=== PATIENT | male | born 1950 | race Caucasian/White ===

== ENCOUNTER 2019-12-05 23:20 | Inpatient (IN) | payer MEDICARE, OTHER ==
[~2019-12-05] VITALS: Ht 177.8 cm; Wt 108.4 kg
--- OUTSIDE RECORDS SUMMARY | 2019-12-05 23:25 | XMS REPORT ---
Author [facility] Address Unknown Phone Unavailable Care Team Providers Care Traffic Engineering Director Name Role Phone Unavailable Unavailable Payers Payer Name Policy Type Policy Number Effective Date Expiration Date Problems This patient has no known problems. Allergies, Adverse Reactions, Alerts Allergy Name Allergy Type Status Severity Reaction(s) Onset Date Inactive Date Treating Clinician Comments codeine DA Active U 2019-11-30 00:00:00 ibuprofen DA Active U 2019-11-30 00:00:00 gabapentin DA Active U 2019-11-30 00:00:00 codeine DA Active U 2017-10-06 00:00:00 ibuprofen DA Active U 2017-10-06 00:00:00 gabapentin DA Active U 2017-10-06 00:00:00 Medications This patient has no known medications. Encounters Start Date/Time End Date/Time Encounter Type Admission Type Attending [facility] Care Department Encounter ID 2019-12-27 00:00:00 2019-12-27 00:00:00 Outpatient [facility] [id number] 2019-12-19 00:00:00 2019-12-19 00:00:00 Outpatient [facility] [id number] 2019-10-24 08:41:11 2019-10-24 08:41:11 Outpatient [facility] [id number] 2019-10-03 00:00:00 2019-10-03 00:00:00 Outpatient [facility] [id number] 2019-09-13 10:16:36 2019-09-13 10:16:36 Outpatient [facility] [id number] 2019-09-10 00:00:00 2019-09-10 00:00:00 Outpatient [facility] [id number] 2019-09-07 00:00:00 2019-09-07 00:00:00 Outpatient [facility] [id number] 2019-09-06 00:00:00 2019-09-06 00:00:00 Outpatient [facility] [id number] 2019-09-03 00:00:00 2019-09-03 00:00:00 Outpatient [facility] [id number] 2019-07-20 09:51:32 2019-07-20 09:51:32 Outpatient [facility] [id number] 2019-07-20 00:00:00 2019-07-20 00:00:00 Outpatient [facility] [id number] 2019-07-19 08:20:16 2019-07-19 08:20:16 Outpatient [facility] [id number] 2019-07-19 00:00:00 2019-07-19 00:00:00 Outpatient [facility] [id number] 2019-07-16 12:42:33 2019-07-16 12:42:33 Outpatient [facility] [id number] 2019-07-16 11:15:54 2019-07-16 11:15:54 Outpatient [facility] [id number] 2019-07-16 10:19:06 2019-07-16 10:19:06 Outpatient [facility] [id number] 2019-07-16 00:00:00 2019-07-16 00:00:00 Outpatient [facility] [id number] 2019-06-11 10:22:27 2019-06-11 10:22:27 Outpatient [facility] [id number] 2019-05-28 08:13:26 2019-05-28 08:13:26 Outpatient [facility] [id number] 2019-04-05 12:26:17 2019-04-05 12:26:17 Outpatient [facility] [id number] 2019-03-19 00:00:00 2019-03-19 00:00:00 Outpatient [facility] [id number] 2019-01-23 00:00:00 2019-01-23 00:00:00 Outpatient [facility] [id number] 2019-01-11 10:04:52 2019-01-11 10:04:52 Outpatient [facility] [id number] 2019-01-02 11:42:16 2019-01-02 11:42:16 Outpatient [facility] [id number] 2019-01-01 15:25:51 2019-01-01 15:25:51 Outpatient [facility] [id number] 2019-01-01 14:03:44 2019-01-01 14:03:44 Outpatient [facility] [id number] 2018-12-21 00:00:00 2018-12-21 00:00:00 Outpatient [facility] [id number] 2018-11-21 09:26:03 2018-11-21 09:26:03 Outpatient [facility] [id number] 2018-11-16 09:34:20 2018-11-16 09:34:20 Outpatient [facility] [id number] 2018-10-06 08:43:07 2018-10-06 08:43:07 Outpatient [facility] [id number] 2018-10-05 13:52:43 2018-10-05 13:52:43 Outpatient [facility] [id number] 2018-07-28 11:28:20 2018-07-28 11:28:20 Outpatient [facility] [id number] 2018-07-20 10:34:41 2018-07-20 10:34:41 Outpatient [facility] [id number] 2018-06-15 13:06:09 2018-06-15 13:06:09 Outpatient [facility] [id number] 2018-06-08 10:39:00 2018-06-08 10:39:00 Outpatient [facility] [id number] 2018-06-08 00:00:00 2018-06-08 00:00:00 Outpatient [facility] [id number] 2018-06-07 00:00:00 2018-06-07 00:00:00 Outpatient [facility] [id number] 2018-05-23 08:26:31 2018-05-23 08:26:31 Outpatient [facility] [id number] 2018-05-23 00:00:00 2018-05-23 00:00:00 Outpatient [facility] [id number] 2018-05-17 13:16:18 2018-05-17 13:16:18 Outpatient [facility] [id number] 2018-05-12 08:50:46 2018-05-12 08:50:46 Outpatient [facility] [id number] 2018-05-12 08:50:04 2018-05-12 08:50:04 Outpatient [facility] [id number] 2018-05-04 00:00:00 2018-05-04 00:00:00 Outpatient [facility] [id number] 2018-04-25 14:35:37 2018-04-25 14:35:37 Outpatient [facility] [id number] 2018-04-19 00:00:00 2018-04-19 00:00:00 Outpatient [facility] [id number] 2018-04-05 10:31:19 2018-04-05 10:31:19 Outpatient [facility] [id number] 2018-03-06 09:12:59 2018-03-06 09:12:59 Outpatient [facility] [id number] 2017-11-16 09:54:53 2017-11-16 09:54:53 Outpatient [facility] [id number] 2017-11-14 13:01:59 2017-11-14 13:01:59 Outpatient [facility] [id number] Results Test Description Test Time Test Comments Text Results Atomic Results Result Comments - XR KNEE 4 + V LT 2019-11-30 23:38:00 FAX: Kenya Parikh DO [place]: St: REG Name: BRITTANIEMORRIS GIMENEZ [facility] : 1950 Age/S: 69/M [address] [facility] Unit #: [id number] Loc: [place] [address] Phys: Kenya Parikh DO Acct: [id number] Dis Date: Status: REG ER PHONE #: [phone] Exam Date: 11/30/20190 FAX #: [phone] Reason: KNEE PAIN EXAMS: CPT CODE: [id number] XR KNEE 4 + V LT [address]184 EXAM: - XR KNEE 4 + V LT INDICATION: KNEE PAIN LOCATION CODE: R 16 COMPARISON: None available. TECHNIQUE: 4 views of the left knee were obtained. FINDINGS: No acute fracture or malalignment is seen. Tricompartmental osteophytosis is present. There is a large suprapatellar joint effusion. IMPRESSION: Large suprapatellar joint effusion with tricompartmental degenerative changes. No acute fracture or malalignment. at 2338 Reported and signed by: Laurie Salgado M.D. CC: Kenya Parikh DO Technologist: Paul Beltran RT(R) Trnnina Date/Time/By: 11/30/2019 (2138) : By: [email or web address] Orig Print D/T: S: 11/30/2019 (8977) PAGE 1 Signed Report - XR PELVIS 1/2 VIEWS 2019-11-30 23:37:00 FAX: Kenya Parikh DO [place]: St: REG Name: MORRIS GU [facility] : 1950 Age/S: 69/M [address] [facility] Unit #: [id number] Loc: [place] [address] Phys: Kenya Parikh DO Acct: [id number] Dis Date: Status: REG ER PHONE #: [phone] Exam Date: 11/30/2019 231 FAX #: [phone] Reason: HIP PAIN EXAMS: CPT CODE: [id number] XR PELVIS 1/2 VIEWS 14047 EXAM: - XR PELVIS 1/2 VIEWS INDICATION: HIP PAIN LOCATION CODE: R 16 COMPARISON: None available. TECHNIQUE: 2 views of the pelvis were obtained. FINDINGS: No acute fracture or malalignment is seen. The soft tissues are unremarkable. Degenerative changes are noted at the lower lumbar spine. IMPRESSION: No acute fracture or malalignment. at 2338 Reported and signed by: Laurie Salgado M.D. CC: Kenya Parikh DO Technologist: Paul Beltran RT(R) Trnnina Date/Time/By: 11/30/2019 (5701) : By: [email or web address] Orig Print D/T: S: 11/30/2019 (2645) PAGE 1 Signed Report BASIC METABOLIC PANEL 2019-11-30 21:51:00 SODIUM (test code=NA) 136 mmol/L 136-145 POTASSIUM (test code=K) 4.2 mmol/L 3.5-5.1 CHLORIDE (test code=CL) 104.0 mmol/L 98-107 CARBON DIOXIDE (test code=CO2) 26.0 mmol/L 21-32 ANION GAP (test code=GAP) 10.2 10-20 GLUCOSE (test code=GLU) 141 mg/dL 74-106 BLOOD UREA NITROGEN (test code=BUN) 19 mg/dL 7-18 GLOMERULAR FILTRATION RATE (test code=GFR) > 60 mL/min >=60 Estimated GFR by using Modified MDRD formula.Chronic kidney disease is defined as either kidney damageor GFR <60 mL/min/1.73 m2 for >3 months. CREATININE (test code=CREAT) 0.90 mg/dL 0.7-1.3 BUN/CREATININE RATIO (test code=BUN/CREA) 21.1 10-20 CALCIUM (test code=CA) 8.9 mg/dL 8.5-10.1 BASIC METABOLIC [id number] 21:40:00* Test Item Value Reference Range Comments SODIUM (test code=NA) 136 mmol/L 136-145 POTASSIUM (test code=K) 4.2 mmol/L 3.5-5.1 CHLORIDE (test code=CL) 104.0 mmol/L 98-107 CARBON DIOXIDE (test code=CO2) mmol/L 21-32 ANION GAP (test code=GAP) 10-20 GLUCOSE (test code=GLU) mg/dL 74-106 BLOOD UREA NITROGEN (test code=BUN) mg/dL 7-18 GLOMERULAR FILTRATION RATE (test code=GFR) mL/min >=60 CREATININE (test code=CREAT) mg/dL 0.7-1.3 BUN/CREATININE RATIO (test code=BUN/CREA) 10-20 CALCIUM (test code=CA) mg/dL 8.5-10.1 - XR ANKLE 3 + V [id number] 21:22:00 FAX: Kenya Parikh DO [place]: [address] A St: REG Name: MORRIS FROST [facility] : [birth year] Age/S: 69/M [address] Unit #: [id number] Loc: [place] [address] Phys: Kenya aPrikh DO Acct: [id number] Dis Date: Status: REG ER PHONE #: [phone] Exam Date: 11/30/20192044 FAX #: [phone] Reason: ANKLE PAIN EXAMS: CPT CODE: [id number] XR ANKLE 3 + V LT [address]25 REASON FOR EXAM: ANKLE PAIN EXAM ORDER DATE: 11/30/2019 8:05 PM Ordering: Kenya Parikh DO Attending:Kenya Parikh DO Locati on:VL PROCEDURE: - XR ANKLE 3 + V LT FINDINGS: 3 vi ews of the left ankle were obtained. The osseous structures are unremarkab le in size and shape aside from a small spur in the plantar area of the ca lcaneus. The joint spaces are maintained. No evidence of fracture. The sy ndesmosis is intact. IMPRESSION: No acute osseous abnormality at 2 Reported and signed by: Charan Morrow M.D. CC: Kenya Badillo DO Technologist: FAUSTO OLVERA, RT(R); ... Trnscrd Date/Time/By: 11/30/2019 () : By: Wilmer Orig Print D/T: S: 11/30/2019 (2124) PAGE 1 Signed Report CBC W/O [id number] 21:08:00* Test Item Value Reference Range Comments WHITE BLOOD CELL (test code=WBC) 10.2 K/mm3 4.5-12.5 RED BLOOD CELL (test code=RBC) 3.70 mill/mm3 4.0-5.8 HEMOGLOBIN (test code=HGB) 11.8 gram/dL 13.0-17.5 HEMATOCRIT (test code=HCT) 34.9 % 42.0-52.0 MEAN CELL VOLUME (test code=MCV) 94.3 fL 80-98 MEAN CELL HGB (test code=MCH) 31.9 picogram 27.0-33.0 MEAN CELL HGB CONCETRATION (test code=MCHC) 33.8 gram/dL 33.0-36.0 RED CELL DISTRIBUTION WIDTH (test code=RDW) 12.6 % 11.6-16.2 PLATELET COUNT (test code=PLT) 209 K/mm3 150-450 MEAN PLATELET VOLUME (test code=MPV) 9.7 fL 6.7-11.0 B-TYPE NATRIURETIC [id number] 07:29:00* Test Item Value Reference Range Comments B-TYPE NATRIURETIC PEPTIDE (test code=BNP) 25.42 pgram/mL 0-100 PROTHROMBIN [id number] 07:27:00* Test Item Value Reference Range Comments PROTHROMBIN TIME PATIENT (test code=PTP) 13.0 seconds 9.0-14.0 INTERNATIONAL NORMAL RATIO (test code=INR) 1.1 0.8-1.2 The therapeutic range for oral anticoagulant therapy formost indications is an international normalized ratio (INR)of between 2.0 and 3.0. The recommended therapeutic INRrange for various clinical situations is listed below: Clinical Situation INR range Pulmonary e mbolism treatment (2.0-3.0)Venous thrombosis treatmentVenous thrombosis prophylaxis (high risk surgery)Prevention of systemic embolism from: Acute myocardial infarction Valvular heart disease Atrial fibrillation Mechanical prosthetic heart valves (2.5-3.5) IS PATIENT ON ANTICOAGULANTS? NTHROMBOPLASTIN TIME [id number] 07:27:00* Test Item Value Reference Range Comments THROMBOPLASTIN TIME PARTIAL (test code=PTT) 36.6 seconds 25.0-36.5 IS PATIENT ON ANTICOAGULANTS? [id number] 07:27:00* Test Item Value Reference Range Comments D-DIMER (test code=DDIMER) 1182.00 ng/mLFEU 0-500 Results called to [id number] by SAMIR 09/25/19 0726Critical results verified and read back by Nurse? YClinical Cut-off value for D-Dimer is 500 ng/mL FEU. Comment: The [employer] D- Dimer assay is intended for use asan aid in the diagnosis of venous thromboembolism (VTE)[deep vein thrombosis (DVT) or pulmonary embolism (PE)].The measurement of D-Dimer should not be used as an aid inthe diagnosis of VTE, in patient with: -Therapeutic dose anticoagulant therapy for >24 hours - Fibrinolytic therapy within previous 7 days -Trauma or surgery within previous 4 weeks -Disseminated malignancies -Aortic aneurysm -Sepsis, severe infections, pneumonia, severe skin infections -Liver cirrhosis - IS PATIENT ON ANTICOAGULANTS? NCOMPREHENSIVE METABOLIC [id number] 07:27:00 * Test Item Value Reference Range Comments SODIUM (test code=NA) 138 mmol/L 136-145 POTASSIUM (test code=K) 4.4 mmol/L 3.5-5.1 CHLORIDE (test code=CL) 106.0 mmol/L 98-107 CARBON DIOXIDE (test code=CO2) 25.0 mmol/L 21-32 ANION GAP (test code=GAP) 11.4 10-20 GLUCOSE (test code=GLU) 110 mg/dL 74-106 BLOOD UREA NITROGEN (test code=BUN) 18 mg/dL 7-18 GLOMERULAR FILTRATION RATE (test code=GFR) > 60 mL/min >=60 Estimated GFR by using Modified MDRD formula.Chronic kidney disease is defined as either kidney damageor GFR <60 mL/min/1.73 m2 for >3 months. CREATININE (test code=CREAT) 0.90 mg/dL 0.7-1.3 BUN/CREATININE RATIO (test code=BUN/CREA) 19.5 10-20 TOTAL PROTEIN (test code=PROT) 7.0 gram/dL 6.4-8.2 ALBUMIN (test code=ALB) 3.7 g/dL 3.4-5.0 GLOBULIN (test code=GLOB) 3.3 gram/dL 2.7-4.2 ALBUMIN/GLOBULIN RATIO (test code=A/G) 1.1 0.75-1.50 CALCIUM (test code=CA) 9.3 mg/dL 8.5-10.1 BILIRUBIN TOTAL (test code=BILT) 0.70 mg/dL 0.0-1.0 SGOT/AST (test code=AST) 22 IUnit/L 15-37 SGPT/ALT (test code=ALT) 39 IUnit/L 12-78 ALKALINE PHOSPHATASE TOTAL (test code=ALKP) 60 IUnit/L 45-117 Note change in reference range due to change in reagent. LIPID PROFILE (CORONARY RISK)2019-09-25 07:27:00* Test Item Value Reference Range Comments TRIGLYCERIDES (test code=TRIG) 76 mg/dL 20-150 CHOLESTEROL (test code=CHOL) 121 mg/dL 0-200 CHOLESTEROL/HDL RATIO (test code=CHOLHDL) 2.0 RATIO 0-4.9 RISK ASSOCIATED WITH CHOL/HDL RATIOS: Risk Male Female1/2 AVERAGE 3.43 3.27AVERAGE 4.97 4.442X AVERAGE 9.55 7.053X AVERAGE 23.39 11.04 REFERENCE VALUE IS RELATED TO RISK LEVELS ASRECOMMENDED BY THE RHONA. HEART, LUNG, AND BLOOD INST. HDL CHOLESTEROL (test code=HDL) 47 mg/dL 40-60 LIPOPROTEIN LDL (test code=LDL) 69 mg/dL 100-129 Reference Interval: mg/dL mmol/L Optimal <100 <2.6Near/above optimal 100-129 2.6- 3.3Borderline High 130-159 3.4-4.1High 160-189 4.1-4.9Very High >=190 >=4.9=========This LDL result is a direct measurement.========= [id number] 07:27:00* Test Item Value Reference Range Comments MAGNESIUM (test code=MAG) 2.2 mg/dL 1.8-2.4 THYROID PROFILE [id number] 07:27:00* Test Item Value Reference Range Comments T3 UPTAKE (test code=T3UP) 34.0 % 30.0-40.0 T4 (THYROXINE) (test code=T4) 8.1 ug/dL 4.5-13.9 T7 (FREE THYROXINE INDEX) (test code=T7) 2.75 FTI 1.3-5.1 THYROID STIMULATING HORMONE (test code=TSH) 0.849 uIU/mL 0.36-3.74 TSH REFERENCE RANGES: EUTHYROID: 0.35 - 4.3 mIU/mL HYPO : > 5.5 mIU/mL HYPER : < 0.35 mIU/mL [id number] 07:27:00* Test Item Value Reference Range Comments TROPONIN-I (test code=TROPI) <0.015 ng/mL 0-0.045 CBC W/AUTO [id number] 07:19:00* Test Item Value Reference Range Comments WHITE BLOOD CELL (test code=WBC) 9.0 K/mm3 4.5-12.5 RED BLOOD CELL (test code=RBC) 4.33 mill/mm3 4.0-5.8 HEMOGLOBIN (test code=HGB) 13.8 gram/dL 13.0-17.5 HEMATOCRIT (test code=HCT) 40.7 % 42.0-52.0 MEAN CELL VOLUME (test code=MCV) 94.0 fL 80-98 MEAN CELL HGB (test code=MCH) 31.9 picogram 27.0-33.0 MEAN CELL HGB CONCETRATION (test code=MCHC) 33.9 gram/dL 33.0-36.0 RED CELL DISTRIBUTION WIDTH (test code=RDW) 12.0 % 11.6-16.2 RED CELL DISTRIBUTION WIDTH SD (test code=RDW-SD) 41.6 fL 37.0-51.0 PLATELET COUNT (test code=PLT) 223 K/mm3 150-450 MEAN PLATELET VOLUME (test code=MPV) 10.1 fL 6.7-11.0 NEUTROPHIL % (test code=NT%) 62.8 % 39.0-69.0 IMMATURE GRANULOCYTE % (test code=IG%) 0.2 % 0.0-5.0 LYMPHOCYTE % (test code=LY%) 24.2 % 25.0-55.0 MONOCYTE % (test code=MO%) 7.6 % 0.0-10.0 EOSINOPHIL % (test code=EO%) 4.9 % 0.0-5.0 BASOPHIL % (test code=BA%) 0.3 % 0.0-1.0 NUCLEATED RBC % (test code=NRBC%) 0.0 % 0-0 NEUTROPHIL # (test code=NT#) 5.62 K/mm3 1.8-7.7 IMMATURE GRANULOCYTE # (test code=IG#) 0.02 x10 3/uL 0-0.03 LYMPHOCYTE # (test code=LY#) 2.17 K/mm3 1.0-5.0 MONOCYTE # (test code=MO#) 0.68 K/mm3 0-0.8 EOSINOPHIL # (test code=EO#) 0.44 K/mm3 0.0-0.5 BASOPHIL # (test code=BA#) 0.03 K/mm3 0.0-0.2 NUCLEATED RBC # (test code=NRBC#) 0.00 K/mm3 0.0-0.1 MANUAL DIFF REQUIRED (test code=MDIFF) NO COMPREHENSIVE METABOLIC [id number] 07:05:00* Test Item Value Reference Range Comments SODIUM (test code=NA) 138 mmol/L 136-145 POTASSIUM (test code=K) 4.4 mmol/L 3.5-5.1 CHLORIDE (test code=CL) 106.0 mmol/L 98-107 CARBON DIOXIDE (test code=CO2) mmol/L 21-32 ANION GAP (test code=GAP) 10-20 GLUCOSE (test code=GLU) mg/dL 74-106 BLOOD UREA NITROGEN (test code=BUN) mg/dL 7-18 GLOMERULAR FILTRATION RATE (test code=GFR) mL/min >=60 CREATININE (test code=CREAT) mg/dL 0.7-1.3 BUN/CREATININE RATIO (test code=BUN/CREA) 10-20 TOTAL PROTEIN (test code=PROT) gram/dL 6.4-8.2 ALBUMIN (test code=ALB) g/dL 3.4-5.0 GLOBULIN (test code=GLOB) gram/dL 2.7-4.2 ALBUMIN/GLOBULIN RATIO (test code=A/G) 0.75-1.50 CALCIUM (test code=CA) mg/dL 8.5-10.1 BILIRUBIN TOTAL (test code=BILT) mg/dL 0.0-1.0 SGOT/AST (test code=AST) IUnit/L 15-37 SGPT/ALT (test code=ALT) IUnit/L 12-78 ALKALINE PHOSPHATASE TOTAL (test code=ALKP) IUnit/L 45-117 LIPID PROFILE (CORONARY RISK)2019-09-25 07:05:00* Test Item Value Reference Range Comments TRIGLYCERIDES (test code=TRIG) mg/dL 20-150 CHOLESTEROL (test code=CHOL) mg/dL 0-200 CHOLESTEROL/HDL RATIO (test code=CHOLHDL) RATIO 0-4.9 HDL CHOLESTEROL (test code=HDL) mg/dL 40-60 LIPOPROTEIN LDL (test code=LDL) mg/dL 100-129 [id number] 07:05:00* Test Item Value Reference Range Comments MAGNESIUM (test code=MAG) mg/dL 1.8-2.4 THYROID PROFILE [id number] 07:05:00* Test Item Value Reference Range Comments T3 UPTAKE (test code=T3UP) % 30.0-40.0 T4 (THYROXINE) (test code=T4) ug/dL 4.5-13.9 T7 (FREE THYROXINE INDEX) (test code=T7) FTI 1.3-5.1 THYROID STIMULATING HORMONE (test code=TSH) uIU/mL 0.36-3.74 [id number] 07:05:00* Test Item Value Reference Range Comments TROPONIN-I (test code=TROPI) ng/mL 0-0.045 CBC W/AUTO [id number] 07:03:00* Test Item Value Reference Range Comments WHITE BLOOD CELL (test code=WBC) K/mm3 4.5-12.5 RED BLOOD CELL (test code=RBC) mill/mm3 4.0-5.8 HEMOGLOBIN (test code=HGB) 13.8 gram/dL 13.0-17.5 HEMATOCRIT (test code=HCT) % 42.0-52.0 MEAN CELL VOLUME (test code=MCV) fL 80-98 MEAN CELL HGB (test code=MCH) picogram 27.0-33.0 MEAN CELL HGB CONCETRATION (test code=MCHC) gram/dL 33.0-36.0 RED CELL DISTRIBUTION WIDTH (test code=RDW) % 11.6-16.2 RED CELL DISTRIBUTION WIDTH SD (test code=RDW-SD) fL 37.0-51.0 PLATELET COUNT (test code=PLT) K/mm3 150-450 MEAN PLATELET VOLUME (test code=MPV) fL 6.7-11.0 NEUTROPHIL % (test code=NT%) % 39.0-69.0 IMMATURE GRANULOCYTE % (test code=IG%) % 0.0-5.0 LYMPHOCYTE % (test code=LY%) % 25.0-55.0 MONOCYTE % (test code=MO%) % 0.0-10.0 EOSINOPHIL % (test code=EO%) % 0.0-5.0 BASOPHIL % (test code=BA%) % 0.0-1.0 NEUTROPHIL # (test code=NT#) K/mm3 1.8-7.7 LYMPHOCYTE # (test code=LY#) K/mm3 1.0-5.0 MONOCYTE # (test code=MO#) K/mm3 0-0.8 EOSINOPHIL # (test code=EO#) K/mm3 0.0-0.5 BASOPHIL # (test code=BA#) K/mm3 0.0-0.2 [id number] 06:44:00* Test Item Value Reference Range Comments GLYCOSYLATED HEMOGLOBIN (HA1C) (test code=GLYHGB) 5.9 % HbA1 4.8-6.0 ESTIMATED AVERAGE GLUCOSE (test code=EAG) 123 MG/DL - CTA [id number] 12:27:00 Name: MORRIS GU [facility] : 1950 Age/S: 69 / M [address] [facility] Unit #: [id number] Loc: [place] [address] Phys: Isreal Diaz MD Acct: [id number] Dis Date: Status: ADM IN PHONE #: [phone] Exam Date: 09/24/2019 1135 FAX #: [phone] Reason: Afib SOB EXAMS: CPT CODE: [id number] CTA CHEST 80991 REASON FOR EXAM: Afib SOB EXAM ORDER DATE: 09/24/2019 9:12 AM Ordering M.D.: Isreal Diaz MD PROCEDURE: - CTA CHEST Comparison:Chest radiograph the previous day Axial CT images of the chest were obtained with IV contrast. Reconstructed sagittal and coronal images of the chest were provided for interpretation. Dose reduction techniques were applied. FINDINGS: Visualized neck: Normal Airways, Lungs and Pleura: Normal Heart, great vessels, pulmonary vessels, mediastinum: No filling defects within the pulmonary arteries. Cardiac chambers are within normal limits. Specifically no thrombus is seen within the left atrial appendage. Mild atherosclerotic disease is present in the coronary arteries and the thoracic aorta. No evidence of aortic dissection. Lymph nodes: No axillary, internal mammary, hilar, or mediastinal adenopathy. Musculoskeletal/chest wall: There is height loss of multiple vertebral bodies in the midthoracic spine that is most pronounced at T6. However no fractures seen. Vertebral body osteophytes are seen throughout the visualized spine. Visualized upper abdomen: Normal IMPRESSION: No abnormalities of the lungs, pleura, and airways to explain the patient's shortness of breath. Additionally no filling defects in the pulmonary arteries and no significant abnormalities of the thoracic aorta or coronary arteries. PAGE 1 Signed Report (CONTINUED) Name: MORRIS GU [facility] : 1950 Age/S: 69 / M [address] [facility] Unit #: [id number] Loc: [place] [address] Phys: Isreal Diaz MD Acct: [id number] Dis Date: Status: ADM IN PHONE #: [phone] Exam Date: 09/24/2019 1135 FAX #: [phone] Reason: Afib SOB EXAMS: CPT CODE: [id number] CTA CHEST 26284 <Continued> Location: [facility] at 1227 Reported and signed by: Joaquín Ellis MD CC: Natalia Barnes MD; Isreal Diaz MD Technologist:Juvnecio Hand RT(R)(CT) CTDI: DLP: Trnscb Date/Time: 09/24/2019 (5291) [email or web address] Orig Print D/T: S: 09/24/2019 (4724) PAGE 2 Signed Report BASIC METABOLIC [id number] 04:30:00* Test Item Value Reference Range Comments SODIUM (test code=NA) 141 mmol/L 136-145 POTASSIUM (test code=K) 4.3 mmol/L 3.5-5.1 CHLORIDE (test code=CL) 107.0 mmol/L 98-107 CARBON DIOXIDE (test code=CO2) 26.0 mmol/L 21-32 ANION GAP (test code=GAP) 12.3 10-20 GLUCOSE (test code=GLU) 113 mg/dL 74-106 BLOOD UREA NITROGEN (test code=BUN) 14 mg/dL 7-18 GLOMERULAR FILTRATION RATE (test code=GFR) > 60 mL/min >=60 Estimated GFR by using Modified MDRD formula.Chronic kidney disease is defined as either kidney damageor GFR <60 mL/min/1.73 m2 for >3 months. CREATININE (test code=CREAT) 1.00 mg/dL 0.7-1.3 BUN/CREATININE RATIO (test code=BUN/CREA) 14.2 10-20 CALCIUM (test code=CA) 9.4 mg/dL 8.5-10.1 LIPID PROFILE (CORONARY RISK)2019-09-24 04:30:00* Test Item Value Reference Range Comments TRIGLYCERIDES (test code=TRIG) 43 mg/dL 20-150 CHOLESTEROL (test code=CHOL) 126 mg/dL 0-200 CHOLESTEROL/HDL RATIO (test code=CHOLHDL) 2.0 RATIO 0-4.9 RISK ASSOCIATED WITH CHOL/HDL RATIOS: Risk Male Female1/2 AVERAGE 3.43 3.27AVERAGE 4.97 4.442X AVERAGE 9.55 7.053X AVERAGE 23.39 11.04 REFERENCE VALUE IS RELATED TO RISK LEVELS ASRECOMMENDED BY THE [facility]. HEART, LUNG, AND BLOOD INST. HDL CHOLESTEROL (test code=HDL) 48 mg/dL 40-60 LIPOPROTEIN LDL (test code=LDL) 73 mg/dL 100-129 Reference Interval: mg/dL mmol/L Optimal <100 <2.6Near/above optimal 100-129 2.6- 3.3Borderline High 130-159 3.4-4.1High 160-189 4.1-4.9Very High >=190 >=4.9=========This LDL result is a direct measurement.========= [id number] 04:30:00* Test Item Value Reference Range Comments MAGNESIUM (test code=MAG) 2.0 mg/dL 1.8-2.4 THYROID PROFILE [id number] 04:30:00* Test Item Value Reference Range Comments T3 UPTAKE (test code=T3UP) 36.0 % 30.0-40.0 T4 (THYROXINE) (test code=T4) 8.7 ug/dL 4.5-13.9 T7 (FREE THYROXINE INDEX) (test code=T7) 3.13 FTI 1.3-5.1 THYROID STIMULATING HORMONE (test code=TSH) 1.230 uIU/mL 0.36-3.74 TSH REFERENCE RANGES: EUTHYROID: 0.35 - 4.3 mIU/mL HYPO : > 5.5 mIU/mL HYPER : < 0.35 mIU/mL [id number] 04:11:00* Test Item Value Reference Range Comments TROPONIN-I (test code=TROPI) <0.015 ng/mL 0-0.045 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: COLLECT 3 HOURS AFTER PREVIOUS SAMPLEBASIC METABOLIC [id number] 04:10:00* Test Item Value Reference Range Comments SODIUM (test code=NA) 141 mmol/L 136-145 POTASSIUM (test code=K) 4.3 mmol/L 3.5-5.1 CHLORIDE (test code=CL) 107.0 mmol/L 98-107 CARBON DIOXIDE (test code=CO2) mmol/L 21-32 ANION GAP (test code=GAP) 10-20 GLUCOSE (test code=GLU) mg/dL 74-106 BLOOD UREA NITROGEN (test code=BUN) mg/dL 7-18 GLOMERULAR FILTRATION RATE (test code=GFR) mL/min >=60 CREATININE (test code=CREAT) mg/dL 0.7-1.3 BUN/CREATININE RATIO (test code=BUN/CREA) 10-20 CALCIUM (test code=CA) mg/dL 8.5-10.1 LIPID PROFILE (CORONARY RISK)2019-09-24 04:10:00* Test Item Value Reference Range Comments TRIGLYCERIDES (test code=TRIG) mg/dL 20-150 CHOLESTEROL (test code=CHOL) mg/dL 0-200 CHOLESTEROL/HDL RATIO (test code=CHOLHDL) RATIO 0-4.9 HDL CHOLESTEROL (test code=HDL) mg/dL 40-60 LIPOPROTEIN LDL (test code=LDL) mg/dL 100-129 [id number] 04:10:00* Test Item Value Reference Range Comments MAGNESIUM (test code=MAG) mg/dL 1.8-2.4 THYROID PROFILE [id number] 04:10:00* Test Item Value Reference Range Comments T3 UPTAKE (test code=T3UP) % 30.0-40.0 T4 (THYROXINE) (test code=T4) ug/dL 4.5-13.9 T7 (FREE THYROXINE INDEX) (test code=T7) FTI 1.3-5.1 THYROID STIMULATING HORMONE (test code=TSH) uIU/mL 0.36-3.74 CBC W/AUTO [id number] 03:50:00* Test Item Value Reference Range Comments WHITE BLOOD CELL (test code=WBC) 7.0 K/mm3 4.5-12.5 RED BLOOD CELL (test code=RBC) 4.18 mill/mm3 4.0-5.8 HEMOGLOBIN (test code=HGB) 13.3 gram/dL 13.0-17.5 HEMATOCRIT (test code=HCT) 40.7 % 42.0-52.0 MEAN CELL VOLUME (test code=MCV) 97.4 fL 80-98 MEAN CELL HGB (test code=MCH) 31.8 picogram 27.0-33.0 MEAN CELL HGB CONCETRATION (test code=MCHC) 32.7 gram/dL 33.0-36.0 RED CELL DISTRIBUTION WIDTH (test code=RDW) 12.2 % 11.6-16.2 RED CELL DISTRIBUTION WIDTH SD (test code=RDW-SD) 43.9 fL 37.0-51.0 PLATELET COUNT (test code=PLT) 200 K/mm3 150-450 MEAN PLATELET VOLUME (test code=MPV) 9.4 fL 6.7-11.0 NEUTROPHIL % (test code=NT%) 40.6 % 39.0-69.0 IMMATURE GRANULOCYTE % (test code=IG%) 0.1 % 0.0-5.0 LYMPHOCYTE % (test code=LY%) 43.4 % 25.0-55.0 MONOCYTE % (test code=MO%) 8.3 % 0.0-10.0 EOSINOPHIL % (test code=EO%) 7.0 % 0.0-5.0 BASOPHIL % (test code=BA%) 0.6 % 0.0-1.0 NUCLEATED RBC % (test code=NRBC%) 0.0 % 0-0 NEUTROPHIL # (test code=NT#) 2.82 K/mm3 1.8-7.7 IMMATURE GRANULOCYTE # (test code=IG#) 0.01 x10 3/uL 0-0.03 LYMPHOCYTE # (test code=LY#) 3.02 K/mm3 1.0-5.0 MONOCYTE # (test code=MO#) 0.58 K/mm3 0-0.8 EOSINOPHIL # (test code=EO#) 0.49 K/mm3 0.0-0.5 BASOPHIL # (test code=BA#) 0.04 K/mm3 0.0-0.2 NUCLEATED RBC # (test code=NRBC#) 0.00 K/mm3 0.0-0.1 MANUAL DIFF REQUIRED (test code=MDIFF) NO [id number] 01:30:00* Test Item Value Reference Range Comments TROPONIN-I (test code=TROPI) <0.015 ng/mL 0-0.045 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: COLLECT 3 HOURS AFTER PREVIOUS SAMPLEBASIC METABOLIC [id number] 19:18:00* Test Item Value Reference Range Comments SODIUM (test code=NA) 137 mmol/L 136-145 POTASSIUM (test code=K) 4.5 mmol/L 3.5-5.1 CHLORIDE (test code=CL) 104.0 mmol/L 98-107 CARBON DIOXIDE (test code=CO2) 26.0 mmol/L 21-32 ANION GAP (test code=GAP) 11.5 10-20 GLUCOSE (test code=GLU) 113 mg/dL 74-106 BLOOD UREA NITROGEN (test code=BUN) 11 mg/dL 7-18 GLOMERULAR FILTRATION RATE (test code=GFR) > 60 mL/min >=60 Estimated GFR by using Modified MDRD formula.Chronic kidney disease is defined as either kidney damageor GFR <60 mL/min/1.73 m2 for >3 months. CREATININE (test code=CREAT) 1.10 mg/dL 0.7-1.3 BUN/CREATININE RATIO (test code=BUN/CREA) 10.4 10-20 CALCIUM (test code=CA) 10.0 mg/dL 8.5-10.1 [id number] 19:18:00* Test Item Value Reference Range Comments TROPONIN-I (test code=TROPI) <0.015 ng/mL 0-0.045 BASIC METABOLIC [id number] 19:09:00* Test Item Value Reference Range Comments SODIUM (test code=NA) 137 mmol/L 136-145 POTASSIUM (test code=K) 4.5 mmol/L 3.5-5.1 CHLORIDE (test code=CL) 104.0 mmol/L 98-107 CARBON DIOXIDE (test code=CO2) mmol/L 21-32 ANION GAP (test code=GAP) 10-20 GLUCOSE (test code=GLU) mg/dL 74-106 BLOOD UREA NITROGEN (test code=BUN) mg/dL 7-18 GLOMERULAR FILTRATION RATE (test code=GFR) mL/min >=60 CREATININE (test code=CREAT) mg/dL 0.7-1.3 BUN/CREATININE RATIO (test code=BUN/CREA) 10-20 CALCIUM (test code=CA) mg/dL 8.5-10.1 [id number] 19:09:00* Test Item Value Reference Range Comments TROPONIN-I (test code=TROPI) ng/mL 0-0.045 CBC W/O [id number] 19:08:00* Test Item Value Reference Range Comments WHITE BLOOD CELL (test code=WBC) 7.8 K/mm3 4.5-12.5 RED BLOOD CELL (test code=RBC) 4.34 mill/mm3 4.0-5.8 HEMOGLOBIN (test code=HGB) 13.8 gram/dL 13.0-17.5 HEMATOCRIT (test code=HCT) 42.2 % 42.0-52.0 MEAN CELL VOLUME (test code=MCV) 97.2 fL 80-98 MEAN CELL HGB (test code=MCH) 31.8 picogram 27.0-33.0 MEAN CELL HGB CONCETRATION (test code=MCHC) 32.7 gram/dL 33.0-36.0 RED CELL DISTRIBUTION WIDTH (test code=RDW) 12.2 % 11.6-16.2 PLATELET COUNT (test code=PLT) 229 K/mm3 150-450 MEAN PLATELET VOLUME (test code=MPV) 9.5 fL 6.7-11.0 CBC W/O [id number] 19:06:00* Test Item Value Reference Range Comments WHITE BLOOD CELL (test code=WBC) K/mm3 4.5-12.5 RED BLOOD CELL (test code=RBC) mill/mm3 4.0-5.8 HEMOGLOBIN (test code=HGB) 13.8 gram/dL 13.0-17.5 HEMATOCRIT (test code=HCT) 42.2 % 42.0-52.0 MEAN CELL VOLUME (test code=MCV) fL 80-98 MEAN CELL HGB (test code=MCH) picogram 27.0-33.0 MEAN CELL HGB CONCETRATION (test code=MCHC) gram/dL 33.0-36.0 RED CELL DISTRIBUTION WIDTH (test code=RDW) % 11.6-16.2 PLATELET COUNT (test code=PLT) K/mm3 150-450 MEAN PLATELET VOLUME (test code=MPV) fL 6.7-11.0 - XR CHEST 1 [id number] 19:01:00 FAX: Quentin Bennett MD [phone] [place]: B St: REG FAX: Y Pepe Yusuf MD [phone] Name: MORRIS GU [facility] : 1950 Age/S: 69/M [address] [facility] Unit #: [id number] Loc: [place] [address] Phys: Quentin Bennett MD Acct: [id number] Dis Date: Status: REG ER PHONE #: [phone] Exam Date: 09/23/2019 1841 FAX #: [phone] Reason: CHEST PAIN EXAMS: CPT CODE: [id number] XR CHEST 1 V 58073 REASON FOR EXAM: CHEST PAIN EXAM ORDER DATE: 09/23/2019 6:32 PM Ordering: Quentin Bennett MD Attending:Quentin Bennett MD Location: PROCEDURE: - XR CHEST 1 V COMPARISON: 02/01/2017 FINDINGS: Portable AP frontal view of the chest obtained at 6:38 PM shows clear lungs without evidence of consolidation. There is no evidence of effusion. The heart size is within normal limits. Pulmonary vasculatures are unremarkable. IMPRESSION: No active disease. at 1901 Reported and signed by: Charan Morrow M.D. CC: Quentin Bennett MD; Pepe Yusuf MD Technologist: Francisco RIVAS) Trnscrd Date/Time/By: 09/23/2019 (1900) : By: SammyL Orig Print D/T: S: 09/23/2019 (1903) PAGE 1 Signed Report
[2019-12-05] MEDS ORDERED: ONDANSETRON HCL INJ 2MG/ML 2ML 2 MG/ML VIAL IV PRN (23:45)
[2019-12-05] MEDS ORDERED: NITROGLYCERIN 2% OINT 1 GM PKT TOP ONE (23:45)
[2019-12-05] MEDS ORDERED: ASPIRIN 81 MG CHEW TAB PO ONE (23:45)
[2019-12-05] MEDS ORDERED: FAMOTIDINE 20 MG/2 ML VIAL IV ONE (23:45)
[2019-12-05] MEDS ORDERED: ACETAMINOPHEN 325 MG TAB PO ONE (23:45)
[2019-12-05 23:54] LABS: BASOPHILS % 0.4 % (0.0-1.0); EOSINOPHILS # (AUTO) 0.5 (0.0-0.4); EOSINOPHILS % 5.2 % (0.0-6.0); HEMATOCRIT 37.8 % (38.2-49.6); HEMOGLOBIN 12.8 g/dL (14.0-18.0); LYMPHOCYTES # (AUTO) 2.2 (1.0-3.2); LYMPHOCYTES % 23.7 % (18.0-39.1); MEAN CORPUSCULAR HEMOGLOBIN 32.2 pg (28-32); MEAN CORPUSCULAR HGB CONC 33.9 g/dL (31-35); MEAN CORPUSCULAR VOLUME 95.2 fL (81-99); MONOCYTES # (AUTO) 0.7 (0.2-0.8); MONOCYTES % 7.2 % (4.4-11.3); NEUTROPHILS # (AUTO) 5.9 (2.1-6.9); NEUTROPHILS % 63.2 % (38.7-80.0); PLATELET COUNT 252 x10e3/uL (140-360); RED BLOOD COUNT 3.97 x10e6/uL (4.3-5.7); RED CELL DISTRIBUTION WIDTH 12.8 % (11.7-14.4)
[2019-12-06] VITALS (8 sets, daily range): BP systolic 116–162; BP diastolic 61–87
--- NOTE | 2019-12-06 00:05 | Diagnostic Imaging Report ---
EXAMINATION: CHEST SINGLE (PORTABLE) COMPARISON: None INDICATION: ^Chest pain, look for CHF, enlarge Mediastinum ^20191205 ^2350 DISCUSSION: Frontal view of the chest obtained at 2348 hours. HEART AND MEDIASTINUM: The heart is top normal in size. The descending thoracic aorta is tortuous. LINES: None. LUNGS: Mild hyperinflation. No pneumonia or pulmonary edema. PLEURA: No pleural effusion or pneumothorax. BONES AND SOFT TISSUES: Degenerative changes of the spine. No focal osseous lesion. The soft tissues are normal. IMPRESSION: No evidence of CHF. Mild hyperinflation suggestive of small airways disease. Signed by: Dr. Jamee Amaro MD on 12/06/2019 12:03 AM
[2019-12-06 00:14] LABS: ALANINE AMINOTRANSFERASE 37 IU/L (0-55); ALBUMIN 4.2 g/dL (3.5-5.0); ALBUMIN/GLOBULIN RATIO 1.4 (0.8-2.0); ALKALINE PHOSPHATASE 73 IU/L (40-150); AMYLASE 343 U/L (25-125); ANION GAP 13.7 mmol/L (8-16); BLOOD UREA NITROGEN 13 mg/dL (7-26); BUN/CREATININE RATIO 15 (6-25); CALCIUM 10.2 mg/dL (8.4-10.2); CARBON DIOXIDE 25 mmol/L (22-29); CHLORIDE 102 mmol/L (98-107); CREATINE KINASE 211 IU/L (30-200); CREATININE, SERUM 0.89 mg/dL (0.72-1.25); EST GLOMERULAR FILTRATION RATE > 60 ML/MIN (60-); GLUCOSE 135 mg/dL (74-118); LIPASE 14 U/L (8-78); POTASSIUM 3.7 mmol/L (3.5-5.1); SODIUM 137 mmol/L (136-145)
[2019-12-06] MEDS ORDERED: DIPHENHYDRAMINE HCL INJ 50 MG/ML VIAL IV PRN (00:15)
[2019-12-06] MEDS ORDERED: HYDROCODONE/APAP 7.5MG-325MG 1 EA TAB PO PRN (00:15)
[2019-12-06] MEDS ORDERED: ENALAPRILAT IV INJ 1.25 MG/ML VIAL IV PRN (00:15)
[2019-12-06] MEDS ORDERED: ZOLPIDEM TARTRATE 5 MG TAB PO PRN (00:15)
[2019-12-06] MEDS: MORPHINE SULFATE INJ 4 MG/ML INJ 1ML IV PRN ×2 (01:48→21:04)
[2019-12-06] MEDS ORDERED: ENOXAPARIN SODIUM INJ 100 MG/ML SYR SC ONE (02:00)
[2019-12-06] MEDS ORDERED: SODIUM CHLORIDE FLUSH 10 ML SYR INJ PRN (02:00)
[2019-12-06] MEDS ORDERED: ATORVASTATIN CA10 MG PO (03:47)
[2019-12-06] MEDS ORDERED: LISINOPRIL10 MG PO (03:47)
[2019-12-06] MEDS ORDERED: KEPPRA750 MG PO (03:47)
[2019-12-06] MEDS ORDERED: XARELTO10 MG PO (03:47)
[2019-12-06] MEDS ORDERED: AMIODARONE HCL200 MG (03:47)
[2019-12-06] MEDS: NITROGLYCERIN 2% OINT 1 GM PKT TOP SCH ×2 (06:00→07:06)
--- NOTE | 2019-12-06 06:38 | NUR ---
H&P PCP cc: cp and knee pain HPI: 69yoM, developed chest discomfort and dizziness with speech changes; some SOB. last stress test >2yrs ago; speech back to normal; PMH: PAF/a.flutter s/p ablation, HTN, HLD, obesity, knee arthritis, stroke, cig hx PShx: hand, elbow Allergies; see emr Fh/SH: single; hx cigs meds; see MAR ROS; no f/c/s/N/V/D/MEDRANO/skin rash/back pain/confusion/focal limb weakness/hallucinations v/s; revd PE tired appearing anicteric ns1s2 mod bs soft nt nd chest wall tender on Right no e/t skin dry n. affect a&ox3; labs/.meds revd A/P: 69yoM Musculoskeletal/Atypical CP HTN Obesity BI 34.7 HLD PAF Knee arthralgia Hyperglycemia PLAN restart home meds; start BB; cont amio; cont AC; Cardio eval; echo; hab1c./lipids GI prop: ppi Darin Dowling MD, PhD.
--- NOTE | 2019-12-06 07:30 | NUR ---
RCD PT AT BED PT IS ALERT AND ORIENTED PT RESTING ON BED NO SIGNS OF ANY DISTRESS NOTED IV PATENT BY SALINE FLUSH BED LOW AND LOCKED CALL LIGHT IN REACH
[2019-12-06 08:23] LABS: CREATINE KINASE 150 IU/L (30-200)
--- NOTE | 2019-12-06 08:30 | NUR ---
Obs review done, patient is here with knee pain, chest pain
[2019-12-06 08:37] LABS: CHOL/HDL RATIO 2.8 (3.9-4.7)
[2019-12-06] MEDS: LEVETIRACETAM 500 MG TAB PO SCH ×2 (09:00→17:00)
[2019-12-06] MEDS: ASPIRIN 325 MG TAB PO SCH (09:00)
[2019-12-06] MEDS: ENOXAPARIN INJ 80 MG/0.8 ML SYR SC SCH ×2 (09:00→21:03)
[2019-12-06] MEDS: FAMOTIDINE 20 MG/2 ML VIAL IV SCH ×2 (09:00→17:00)
[2019-12-06] MEDS: AMIODARONE HCL 200 MG TAB PO SCH (09:00)
[2019-12-06] MEDS: LISINOPRIL 10 MG TAB PO SCH (09:00)
[2019-12-06] MEDS ORDERED: METOPROLOL SUCC25 MG PO (10:43)
[2019-12-06] MEDS ORDERED: ONDANSETRON HCL 4 MG ORAL DISINTEGRATING TAB PO PRN (13:15)
[2019-12-06] MEDS: METOPROLOL TARTRATE 25 MG TAB PO SCH ×2 (14:00→21:04)
[2019-12-06 16:29] LABS: CREATINE KINASE 132 IU/L (30-200)
--- NOTE | 2019-12-06 18:37 | NUR ---
PT RESTING ON BED BED SIDE REPORT GIVEN TO ONCOMING NURSE
[2019-12-06] MEDS: ATORVASTATIN 10 MG TAB PO SCH (21:03)
--- NOTE | 2019-12-06 21:15 | Consultation ---
DATE OF CONSULTATION: 12/06/2019 Cardiology Progress Note. REQUESTING PHYSICIAN: Dr. Dowling. REASON FOR CONSULTATION: Chest pain. HISTORY OF PRESENT ILLNESS: This is an -ecyg-jxh man with history of hypertension, hyperlipidemia, atrial fibrillation/flutter status post ablation, and seizure disorder, who presents with complaints of chest pain. The patient reports he was in his usual state of health until yesterday around 9:30 when he developed slurred speech as well as chest tightness. He describes this as 4 to 6/10 in severity, associated with nausea. There was no shortness of breath, nausea, diaphoresis. Denies edema, orthopnea, or PND. Due to symptoms, he presented to the ER for further evaluation. REVIEW OF SYSTEMS: Negative except as per HPI. PAST MEDICAL HISTORY: 1. Hypertension. 2. Hyperlipidemia. 3. Atrial fibrillation/flutter/status post ablation. 4. Seizure disorder. PAST SURGICAL HISTORY: 1. Knee surgery. 2. Toe surgery. 3. Tonsillectomy. 4. Hernia repair. 5. Carpal tunnel. 6. Cervical spine surgery. ALLERGIES: PLEASE SEE EMR. MEDICATIONS: Please see medication list. SOCIAL HISTORY: He smoked 1 to 2 cigars a year for approximately 3-4 years, but previously chewed tobacco. He does not drink any alcohol or use illicit drugs. FAMILY HISTORY: Pertinent for mother with atrial fibrillation. PHYSICAL EXAMINATION: VITAL SIGNS: Temperature 96.4 degrees, pulse 86, respiratory rate 18, blood pressure 135/61, and oxygen saturation 98% on room air. GENERAL: Elderly man, in no acute distress. Awake and alert. LUNGS: Clear to auscultation bilaterally. No wheezes or crackles. CARDIOVASCULAR: Normal rate, regular rhythm. No murmur. Normal S1, S2. ABDOMEN: Soft and nontender. EXTREMITIES: No edema. NEUROLOGIC: Nonfocal exam. LABORATORY DATA: WBC 9.3, hemoglobin 12.8, hematocrit 37.8, and platelets 252. Sodium 137, potassium 3.7, chloride 102, CO2 of 25, BUN 13, and creatinine 0.8. Troponin less than 0.001. Cholesterol 124, triglycerides 46, LDL 70, HDL 45. EKG, it was normal sinus rhythm with first-degree AV block. Telemetry was personally reviewed and interpreted, revealing sinus bradycardia. IMPRESSION: 1. Chest pain. 2. Slurred speech. 3. Hypertension. 4. Hyperlipidemia. 5. Atrial fibrillation/flutter status post ablation. 6. Reported seizure disorder. RECOMMENDATIONS: Trend cardiac markers to rule out myocardial infarction. Echocardiogram performed demonstrating normal LV systolic function with EF 60% to 65%. The patient indicates he follows with Cardiology at [facility]. However, he was at [facility] in approximately 3 months ago with chest pain similar in nature, but more severe than current episode. He reports that he had a nuclear stress test performed at that time, which was unremarkable. We will attempt to obtain records and monitor the patient on telemetry while admitted. Continue home cardiac medications. Thank you for this consult. We will continue to follow. Marianela Sims MD ABS/MODL /[id number]
[2019-12-07] VITALS (8 sets, daily range): BP systolic 100–135; BP diastolic 54–70
[2019-12-07 05:38] LABS: CHOL/HDL RATIO 3.2 (3.9-4.7)
[2019-12-07] MEDS: METOPROLOL TARTRATE 25 MG TAB PO SCH ×3 (06:11→20:57)
[2019-12-07] MEDS: MORPHINE SULFATE INJ 4 MG/ML INJ 1ML IV PRN ×2 (06:38→21:09)
--- NOTE | 2019-12-07 07:30 | NUR ---
D/C summary Principal Dx: Musculoskeletal/Atypical CP PreDm SEcondary Dx: HTN Obesity BI 34.7 HLD PAF Knee arthralgia Hyperglycemia PLAN restart home meds; start BB; cont amio; cont AC; Cardio eval; echo; hab1c./lipids GI prop: ppi 1-31 PreDM, hba1c 5.7. LDL 70. Echo recent normal; medical mgmt; f/u outpt for further mgmt. d/c home f/u pcp 1 week and 1 week d/c>35mins stable Darin Dowling MD, PhD.
[2019-12-07] MEDS ORDERED: ASPIR 8181 MG PO (07:32)
[2019-12-07] MEDS ORDERED: PEPCID20 MG PO (07:32)
[2019-12-07] MEDS: ASPIRIN 325 MG TAB PO SCH (08:55)
[2019-12-07] MEDS: AMIODARONE HCL 200 MG TAB PO SCH (08:55)
[2019-12-07] MEDS: FAMOTIDINE 20 MG/2 ML VIAL IV SCH (08:55)
[2019-12-07] MEDS: LEVETIRACETAM 500 MG TAB PO SCH ×2 (08:56→17:00)
[2019-12-07] MEDS: LISINOPRIL 10 MG TAB PO SCH (08:58)
[2019-12-07] MEDS: ENOXAPARIN INJ 80 MG/0.8 ML SYR SC SCH ×2 (08:58→20:56)
--- NOTE | 2019-12-07 10:08 | NUR ---
PAGED DR WRIGHT AND ASKED THE DISCHARGE APPROVAL SHE SAID SHE COMING TO SEE THE PT
[2019-12-07] MEDS: FAMOTIDINE 20 MG TAB PO SCH (16:30)
--- NOTE | 2019-12-07 16:42 | NUR ---
PAGED DR WRIGHT REGARDING DISCHARGE APPROVAL AND LEFT THE MESSAGE
--- NOTE | 2019-12-07 17:14 | NUR ---
DR WRIGHT RETURNED THE CALL SHE SAID SHE COMING TO SEE THE PT
--- NOTE | 2019-12-07 18:18 | NUR ---
pt c/o hematuria paged and notified dr umanzor got new orders
--- NOTE | 2019-12-07 18:30 | NUR ---
RADIOLOGY NEED CLARIFICATION CT WITH OR WITHOUT CONTRAST IF LOOKING FOR STONE WITHOUT CONTRAST PAGED AND CLARIFIED WITH DR BOUCHER HE SAID HE LOOKING FOR BLADDER MASS NOTIFIED THE RADIOLOGY
--- NOTE | 2019-12-07 19:18 | NUR ---
PT RESTING ON BED BED SIDE REPORT GIVEN TO ONCOMING NURSE
[2019-12-07] MEDS: ACETAMINOPHEN 325 MG TAB PO PRN (19:30)
[2019-12-07 19:32] LABS: CLARITY,URINE CLOUDY (CLEAR); COLOR,URINE ORANGE (YELLOW); NITRITE,URINE POSITIVE (NEGATIVE); PROTEIN,URINE DIPSTICK TRACE (NEGATIVE)
[2019-12-07 19:33] LABS: BILIRUBIN,URINE NEGATIVE (NEGATIVE); KETONES,URINE NEGATIVE (NEGATIVE); LEUKOCYTE ESTERASE ,URINE LARGE (NEGATIVE); URINE UROBILINOGEN 0.2 mg/dL (0.2 - 1)
[2019-12-07 19:39] LABS: RBC,URINE 21-50 /HPF (0-5); WBC,URINE (MAN) 21-50 /HPF (0-5)
[2019-12-07 19:40] LABS: BACTERIA,URINE MODERATE /HPF; EPITHELIAL CELLS,URINE FEW /LPF
--- NOTE | 2019-12-07 20:15 | NUR ---
spoke to dr umanzor about positive UA results, abx ordered. KEI CARRASCO.
[2019-12-07] MEDS ORDERED: SODIUM CHLORIDE 0.9% 250ML 250 ML ONE (20:43)
[2019-12-07] MEDS: ATORVASTATIN 10 MG TAB PO SCH (20:56)
[2019-12-07] MEDS ORDERED: CEFTRIAXONE SOD 1 GM/NS 50 ML 50 ML IV SCH (21:00)
--- NOTE | 2019-12-07 21:29 | Diagnostic Imaging Report ---
CT Abdomen And Pelvis with Intravenous Contrast INDICATION: Hematuria, bladder mass ^HEMATURIA ^20191207 ^2024 ^Y TECHNIQUE: Thin collimation axial images obtained from the diaphragm to the level of the pubic symphysis following the uneventful administration of 100 cc of low osmolar, nonionic intravenous contrast. Dose reduction techniques used: Automated exposure control, adjustment of the mAs and/or kVp according to patient size, standardized low-dose protocol, and/or iterative reconstruction technique. RADIATION DOSE: Total DLP: 867.21 mGy*cm Estimated effective dose: (DLP x 0.015 x size factor) mSv CTDIvol has been reviewed. It is below the limits set by the Radiation Protocol Committee (RPC). COMPARISON: None. ABDOMEN FINDINGS: Lung Bases: Clear. The visualized portions of the mediastinum are normal. Liver: Low attenuating lesion in the dome measures 8 mm. No evidence for mass. Gallbladder: 6 mm intraluminal gallstone. No biliary ductal dilatation. Pancreas: Normal attenuation without mass or ductal dilatation. Spleen: Normal in size. No evidence of mass. Adrenal Glands: No evidence for mass. Kidneys: Right: Normal enhancement. No soft tissue mass. No hydronephrosis. Left: Normal enhancement. No soft tissue mass. No hydronephrosis. Lymph Nodes: No lymphadenopathy. Aorta: Normal in diameter with diffuse calcifications. PELVIS FINDINGS: Bowel: Stomach: Normal. Small Bowel: Normal in caliber with normal wall thickness. Large Bowel: Normal in caliber with normal wall thickness. Appendix: Normal. Bladder: Well distended. No focal mural thickening or mass. Ureters: No dilatation or calculus. Urethra: No dilatation. Prostate: A calcification in the center of the prostate measures 3 mm. Peritoneum/retroperitoneum: No free fluid or fluid collection. Bones: Sclerotic lesion in the right iliac wing measures 15 mm. Sclerotic lesion in L1 measures 10 mm. Mild degenerative changes of the spine. IMPRESSION: 1. No soft tissue mass in the kidneys, ureters or bladder on this single phase CT to explain hematuria. 2. 3 mm calcification in the central prostate gland. This may be within the prostatic urethra representing a passed renal calculus or within the transition zone. There is no evidence of urethral obstruction. 3. Other findings as described above. Signed by: Dr. Jamee Amaro MD on 12/07/2019 9:26 PM
--- NOTE | 2019-12-07 22:06 | NUR ---
spoke to dr umanzor regarding CT results, no new orders received.
[2019-12-07] MEDS ORDERED: SODIUM CHLORIDE 0.9% 50ML 50 ML ONE (22:27)
[2019-12-07] MEDS ORDERED: IOPAMIDOL 370 MG/ML 200 ML INFUS..BTL INJ ONE (22:27)
--- NOTE | 2019-12-07 23:01 | Progress Note ---
DATE: 12/07/2019 Cardiology Progress Note SUBJECTIVE: The patient continues to have chest pain or shortness of breath, but improved. He reports he began having hematuria this evening. OBJECTIVE: VITAL SIGNS: Temperature 96.6 degrees, pulse 59, respiratory rate 22, blood pressure 110/60, and oxygen saturation 98% on room air. GENERAL: Awake, alert, in no acute distress. LUNGS: Clear to auscultation bilaterally. No wheezes or crackles. CARDIOVASCULAR: Normal rate, regular rhythm. No murmur. Normal S1, S2. ABDOMEN: Soft and nontender. EXTREMITIES: No edema. NEURO: Nonfocal exam. LABORATORY DATA: None today. TELEMETRY: Normal sinus rhythm. IMPRESSION: 1. Chest pain. 2. Slurred speech. 3. Hypertension. 4. Hyperlipidemia. 5. Atrial fibrillation/flutter status post ablation. 6. Reported seizure disorder. 7. Hematuria. RECOMMENDATIONS: No evidence of myocardial infarction on serial cardiac biomarkers. Records were reviewed from [facility]. The patient had nuclear stress test at the end of last year without evidence of ischemia. Echocardiogram demonstrated normal LV size with mild concentric LVH and estimated LVEF of 60% to 65%. No further cardiac evaluation is indicated at this time. Further evaluation of hematuria per primary. Continue home cardiac medications. If bleeding worsens, we may need to hold Xarelto temporally. Thank you for this consult. We will continue to follow. Marianela Sims MD ABS/MODL /[id number]
[2019-12-08] VITALS (8 sets, daily range): BP systolic 94–123; BP diastolic 56–68
[2019-12-08] MEDS ORDERED: KEFLEX500 MG PO (02:15)
--- NOTE | 2019-12-08 02:17 | NUR ---
ADDENDUM to D/C Summary: Kept in hospital due to small hematuria- CT abd/pelvis no mass/stone; hematuria resolved; Hb recheck ordered. If normal, will d/c home D/C summary Principal Dx: Musculoskeletal/Atypical CP PreDm SEcondary Dx: HTN Obesity BI 34.7 HLD PAF Knee arthralgia Hyperglycemia Hematuria PLAN restart home meds; start BB; cont amio; cont AC; Cardio eval; echo; hab1c./lipids GI prop: ppi 1-31 PreDM, hba1c 5.7. LDL 70. Echo recent normal; medical mgmt; f/u outpt for further mgmt. d/c home f/u pcp 1 week and 1 week d/c>35mins stable Darin Dowling MD, PhD.
[2019-12-08 05:33] LABS: BASOPHILS % 0.2 % (0.0-1.0); HEMATOCRIT 35.2 % (38.2-49.6); LYMPHOCYTES # (AUTO) 0.8 (1.0-3.2); LYMPHOCYTES % 4.1 % (18.0-39.1); MEAN CORPUSCULAR HGB CONC 34.1 g/dL (31-35); MEAN CORPUSCULAR VOLUME 93.9 fL (81-99); MONOCYTES # (AUTO) 1.3 (0.2-0.8); MONOCYTES % 6.1 % (4.4-11.3); NEUTROPHILS # (AUTO) 18.3 (2.1-6.9); NEUTROPHILS % 88.4 % (38.7-80.0); PLATELET COUNT 220 x10e3/uL (140-360); RED BLOOD COUNT 3.75 x10e6/uL (4.3-5.7); RED CELL DISTRIBUTION WIDTH 13.1 % (11.7-14.4)
[2019-12-08 05:57] LABS: ANION GAP 15.3 mmol/L (8-16); CALCIUM 9.6 mg/dL (8.4-10.2); CREATININE, SERUM 1.28 mg/dL (0.72-1.25); POTASSIUM 4.3 mmol/L (3.5-5.1)
[2019-12-08] MEDS: METOPROLOL TARTRATE 25 MG TAB PO SCH ×3 (05:58→21:45)
[2019-12-08] MEDS: ACETAMINOPHEN 325 MG TAB PO PRN ×3 (05:58→23:13)
--- NOTE | 2019-12-08 07:00 | NUR ---
RCD PT AT BED PT IS ALERT AND ORIENTED PT RESTING ON BED NO SIGNS OF ANY DISTRESS NOTED NO C/O HEMATURIA IV PATENT BY SALINE FLUSH FAMILY AT BED SIDE BED LOW AND LOCKED CALL LIGHT IN REACH
[2019-12-08] MEDS: FAMOTIDINE 20 MG TAB PO SCH ×2 (07:30→16:30)
[2019-12-08] MEDS: AMIODARONE HCL 200 MG TAB PO SCH (09:00)
[2019-12-08] MEDS: ASPIRIN 325 MG TAB PO SCH (09:00)
[2019-12-08] MEDS: LISINOPRIL 10 MG TAB PO SCH (09:00)
[2019-12-08] MEDS: ENOXAPARIN INJ 80 MG/0.8 ML SYR SC SCH ×2 (09:00→21:00)
[2019-12-08] MEDS: LEVETIRACETAM 500 MG TAB PO SCH ×2 (09:00→16:53)
--- NOTE | 2019-12-08 09:16 | NUR ---
Day 2 obs. Sent to R1 for review.
--- NOTE | 2019-12-08 10:54 | NUR ---
R1 recommending inpatient status. Dr. Dowling notified, gave orders to change to inpatient and to cancel discharge.
--- NOTE | 2019-12-08 13:28 | Progress Note ---
DATE: 12/08/2019 Cardiology Progress Note. SUBJECTIVE: The patient is without any new complaints this morning. However, he does endorse some pain in his left knee and also some hematuria which is improving. Denies any chest pain or shortness of breath. Does endorse some pain on his right upper areas that is present with movement and turning in bed. OBJECTIVE: VITAL SIGNS: Temperature 98.0, pulse 70, respiratory rate 18, blood pressure 102/68 oxygen saturation 96% on room air. GENERAL: Alert and oriented x3. Resting comfortably in bed. Does not appear to be in any acute distress. at the bedside. NECK: Supple. No JVD noted. LUNGS: Clear to auscultation throughout. No wheezing. No rhonchi or crackles. CARDIOVASCULAR: Regular rate and rhythm. Normal S1, S2. ABDOMEN: Soft, nontender. EXTREMITIES: Lower extremity, trace edema left lower extremity and swelling around the left knee. CARDIOVASCULAR MEDICATIONS: 1. Amiodarone 200 mg p.o. daily. 2. Aspirin 325 p.o. daily. 3. Atorvastatin 10 p.o. at bedtime. 4. Metoprolol 25 p.o. q.8 hours. 5. Lovenox 80 mg p.o. q.12 hours. 6. Lisinopril 10 mg p.o. daily. LABORATORY DATA: WBC 20.67, hemoglobin 12.0, hematocrit 32.2, platelets 220. Sodium 133, potassium 4.3, BUN 25, creatinine 1.28. CT of the abdomen and pelvis from yesterday with a 3 mm calcification in the central prostate gland. No evidence of urethral obstruction. TELEMETRY: Normal sinus rhythm. IMPRESSION: 1. Chest pain. 2. Slurred speech. 3. Hypertension. 4. Hyperlipidemia. 5. Atrial fibrillation status post ablation. 6. Seizure disorder. 7. Hematuria. 8. Leukocytosis and left knee pain. RECOMMENDATION: Consider evaluation of left knee pain given leukocytosis as above. No evidence of myocardial infarction on serial cardiac biomarkers. Records from [facility] reflect a normal nuclear stress test at the end of last year and echocardiogram with normal LV function. Mild concentric LVH. Estimated left ventricular ejection fraction 60 to 65%. No further cardiac workup is indicated at this time. We will continue to monitor above. Hematuria reported to be improving. Continue to monitor for now. MD ABIGAIL Santacruz/ROB /[id number]
[2019-12-08] MEDS: PIPER-TAZ 3.375 GM 50 ML IV SCH ×2 (14:00→21:45)
--- NOTE | 2019-12-08 14:00 | NUR ---
HOURLY ROUNDS DONE CHECKED PTS URINE NO SIGNS OF HEMATURIA
--- NOTE | 2019-12-08 18:00 | NUR ---
PT C/O FEVER CHECKED FEVER 96.5 F
--- NOTE | 2019-12-08 18:52 | NUR ---
PT RESTING ON BED NO SIGNS OF HEMATURIA BED SIDE REPORT GIVEN TO ONCOMING NURSE
--- NOTE | 2019-12-08 19:05 | NUR ---
Pt visited in room during nursing rounds. Patient alert and oriented x3. No distress or discomfort noted. Pt ambulatory in room with standby assist and use of walker prn. No c/o pain at this time. at bedside visiting. Call berger within reach. Will monitor pt closely.
[2019-12-08] MEDS: ATORVASTATIN 10 MG TAB PO SCH (21:45)
[2019-12-09] VITALS (8 sets, daily range): BP systolic 102–123; BP diastolic 55–65
[2019-12-09] MEDS: FAMOTIDINE 20 MG TAB PO SCH ×2 (06:30→16:50)
[2019-12-09] MEDS: METOPROLOL TARTRATE 25 MG TAB PO SCH ×3 (06:30→21:00)
[2019-12-09] MEDS: PIPER-TAZ 3.375 GM 50 ML IV SCH ×2 (06:30→13:34)
--- NOTE | 2019-12-09 06:50 | NUR ---
received pt from previous shift, pt resting in bed
--- NOTE | 2019-12-09 07:57 | NUR ---
IM-progress note O/N see below ROS; no f/c/s/N/V/D/MEDRANO/skin rash/back pain/confusion/focal limb weakness/hallucinations v/s; revd PE tired appearing anicteric ns1s2 mod bs soft nt nd chest wall tender on Right no e/t skin dry n. affect a&ox3; labs/.meds revd A/P: 69yoM Musculoskeletal/Atypical CP HTN Obesity BI 34.7 HLD PAF Knee arthralgia Hyperglycemia Hyponatremia Hematuria DANTE Sepsis- likely POA; due to UTI Cholelithiais PLAN restart home meds; start BB; cont amio; cont AC; Cardio eval; echo; hab1c./lipids GI prop: ppi Hematuria- small; CT abd/pelvis no mass/stone; resolving hematuria; cont AC; DANTE and Sepsis with UTI; check labs; PT consult; Hyponatremic- start fluids; No urinary stone; does have cholellithiasis. Darin Dowling MD, PhD.
[2019-12-09 08:18] LABS: BASOPHILS % 0.4 % (0.0-1.0); EOSINOPHILS # (AUTO) 0.1 (0.0-0.4); EOSINOPHILS % 1.8 % (0.0-6.0); HEMATOCRIT 32.1 % (38.2-49.6); HEMOGLOBIN 11.1 g/dL (14.0-18.0); LYMPHOCYTES # (AUTO) 0.9 (1.0-3.2); LYMPHOCYTES % 12.8 % (18.0-39.1); MEAN CORPUSCULAR HEMOGLOBIN 32.3 pg (28-32); MEAN CORPUSCULAR HGB CONC 34.6 g/dL (31-35); MEAN CORPUSCULAR VOLUME 93.3 fL (81-99); MONOCYTES # (AUTO) 0.6 (0.2-0.8); MONOCYTES % 7.8 % (4.4-11.3); NEUTROPHILS # (AUTO) 5.6 (2.1-6.9); NEUTROPHILS % 77.1 % (38.7-80.0); PLATELET COUNT 176 x10e3/uL (140-360); RED BLOOD COUNT 3.44 x10e6/uL (4.3-5.7); RED CELL DISTRIBUTION WIDTH 12.9 % (11.7-14.4)
[2019-12-09] MEDS: LEVETIRACETAM 500 MG TAB PO SCH ×2 (08:27→16:50)
[2019-12-09] MEDS: AMIODARONE HCL 200 MG TAB PO SCH (08:27)
[2019-12-09] MEDS: LISINOPRIL 10 MG TAB PO SCH (08:27)
[2019-12-09] MEDS: ASPIRIN 325 MG TAB PO SCH (08:27)
[2019-12-09] MEDS: ENOXAPARIN INJ 80 MG/0.8 ML SYR SC SCH ×2 (08:28→21:00)
[2019-12-09 08:50] LABS: ANION GAP 12.9 mmol/L (8-16); BLOOD UREA NITROGEN 16 mg/dL (7-26); BUN/CREATININE RATIO 20 (6-25); CARBON DIOXIDE 21 mmol/L (22-29); CHLORIDE 101 mmol/L (98-107); CREATININE, SERUM 0.81 mg/dL (0.72-1.25); EST GLOMERULAR FILTRATION RATE > 60 ML/MIN (60-); GLUCOSE 103 mg/dL (74-118); POTASSIUM 3.9 mmol/L (3.5-5.1); SODIUM 131 mmol/L (136-145)
[2019-12-09 09:03] LABS: MAGNESIUM 1.9 MG/DL (1.3-2.1); PHOSPHORUS 2.1 MG/DL (2.3-4.7)
[2019-12-09] MEDS: SODIUM CHLORIDE 0.9% 1000ML 1,000 ML IV SCH (11:31)
--- NOTE | 2019-12-09 14:38 | Consultation ---
DATE OF CONSULTATION: 12/09/2019 Urology Consultation. Consultation is called by Dr. Dowling. CHIEF COMPLAINT/REASON FOR CONSULTATION: Bladder stone, BPH. HISTORY OF PRESENT ILLNESS: Mr. Lane is a 69-year-old male patient. He states he is known he had a kidney stone, just recently passed it. Denied dysuria. Denied gross hematuria. PAST MEDICAL HISTORY: Notable for kidney stone, hypertension, BPH, hyperlipidemia, atrial fibrillation status post ablation, seizure disorder. PAST SURGICAL HISTORY: Knee surgery, toe surgery, tonsils, hernia, carpal tunnels and C-spine surgery. MEDICATIONS: Please see EMR. SOCIAL HISTORY: Denied smoking or drinking. FAMILY HISTORY: Denied urologic stones or malignancies. ALLERGIES: CODEINE AND IBUPROFEN. REVIEW OF SYSTEMS: Noncontributory, other than problems mentioned above for 12-organ systems. PHYSICAL EXAMINATION: GENERAL: Middle-aged male in no acute distress. VITAL SIGNS: Currently, afebrile with stable vital signs. HEENT: Sclerae anicteric. NECK: Supple. BACK: Without costovertebral bilaterally. ABDOMEN: Soft. It is nontender. It is nondistended. No palpable mass, no palpable hernias, no palpable adenopathy. : Normal external genitalia. EXTREMITIES: No edema. NEURO: Moves all four extremities. PSYCH: Alert and mood appropriate. SKIN: Intact. Normal color. PERTINENT LABORATORY DATA: CBC was noted for white blood cell count of 20.67 on December 08 as well as a hemoglobin of 11.1, indicating anemia. Chem 7 notable for hyponatremia with sodium 131. Urinalysis showed 21-50 reds, 21-50 whites per high-power field. CT scan revealing a 3 mm calcification in the prostatic urethra suggestive of recently passed stone, BPH, sclerotic foci in the bones, 6 mm gallstone. IMPRESSION: 1. Benign prostatic hypertrophy. 2. Bladder stone, recently passed. 3. Anemia. 4. Leukocytosis. 5. Urinary tract infection. 6. Microscopic hematuria. PLAN: I explained the patient high risk of recurrence of kidney stones. Recommendation to followup for his BPH. He will need to follow up as an outpatient. For the urinary tract infection, defer discharge antibiotics to primary care service. For the gallstone, defer to the primary as well. Thank you for allowing me to participate in the care of your patient. We will be happy to follow along with you. MD ROWENA Cooper/ROB /[id number]
[2019-12-09] MEDS: ACETAMINOPHEN 325 MG TAB PO PRN ×2 (14:51→22:49)
[2019-12-09] MEDS: CEFEPIME 2 GM/NS 0.9% 100 ML 100 ML IV SCH (16:50)
[2019-12-09] MEDS: VANCOMYCIN HCL 1.25 GM in SODIUM CHLORIDE 0.9% 250ML 250 ML IV SCH (17:44)
--- NOTE | 2019-12-09 19:05 | NUR ---
Pt visited in room during nursing rounds. Patient alert and oriented x3. No distress or discomfort noted. Pt ambulatory in room with standby assist and use of walker prn. On IVF (NS at 60ml/hr). No c/o pain at this time. at bedside visiting. Call berger within reach. Will monitor pt closely.
[2019-12-09] MEDS: ATORVASTATIN 10 MG TAB PO SCH (21:00)
[2019-12-10] VITALS (8 sets, daily range): BP systolic 114–138; BP diastolic 56–66
[2019-12-10] MEDS: SODIUM CHLORIDE 0.9% 1000ML 1,000 ML IV SCH ×2 (04:00→17:20)
[2019-12-10] MEDS: CEFEPIME 2 GM/NS 0.9% 100 ML 100 ML IV SCH ×2 (04:00→16:00)
[2019-12-10] MEDS: VANCOMYCIN HCL 1.25 GM in SODIUM CHLORIDE 0.9% 250ML 250 ML IV SCH ×2 (05:30→17:00)
[2019-12-10] MEDS: FAMOTIDINE 20 MG TAB PO SCH ×2 (06:00→16:30)
[2019-12-10] MEDS: METOPROLOL TARTRATE 25 MG TAB PO SCH ×3 (06:00→21:12)
--- NOTE | 2019-12-10 06:29 | NUR ---
IM-progress note O/N see below ROS; no f/c/s/N/V/D/MEDRANO/skin rash/back pain/confusion/focal limb weakness/hallucinations v/s; revd PE tired appearing anicteric ns1s2 mod bs soft nt nd chest wall tender on Right no e/t skin dry n. affect a&ox3; labs/.meds revd A/P: 69yoM Musculoskeletal/Atypical CP HTN Obesity BI 34.7 HLD PAF Knee arthralgia Hyperglycemia Hyponatremia Hematuria DANTE Sepsis- likely POA; due to UTI Cholelithiais PLAN restart home meds; start BB; cont amio; cont AC; Cardio eval; echo; hab1c./lipids GI prop: ppi Hematuria- small; CT abd/pelvis no mass/stone; resolving hematuria; cont AC; DANTE and Sepsis with UTI; check labs; PT consult; Hyponatremic- start fluids; No urinary stone; does have cholellithiasis. 2-3-20 knee effusion- Ortho for drainage; cont abx; Leukocytosis resolved; lab error? check labs today. Darin Dowling MD, PhD.
[2019-12-10 07:14] LABS: BASOPHILS % 0.3 % (0.0-1.0); EOSINOPHILS # (AUTO) 0.5 (0.0-0.4); EOSINOPHILS % 6.5 % (0.0-6.0); HEMOGLOBIN 10.6 g/dL (14.0-18.0); LYMPHOCYTES # (AUTO) 1.5 (1.0-3.2); LYMPHOCYTES % 21.2 % (18.0-39.1); MEAN CORPUSCULAR HEMOGLOBIN 32.6 pg (28-32); MEAN CORPUSCULAR HGB CONC 34.2 g/dL (31-35); MEAN CORPUSCULAR VOLUME 95.4 fL (81-99); MONOCYTES % 13.2 % (4.4-11.3); NEUTROPHILS # (AUTO) 4.3 (2.1-6.9); NEUTROPHILS % 58.7 % (38.7-80.0); PLATELET COUNT 179 x10e3/uL (140-360); RED BLOOD COUNT 3.25 x10e6/uL (4.3-5.7); RED CELL DISTRIBUTION WIDTH 12.7 % (11.7-14.4)
[2019-12-10 07:45] LABS: ANION GAP 9.7 mmol/L (8-16); BLOOD UREA NITROGEN 13 mg/dL (7-26); BUN/CREATININE RATIO 17 (6-25); CARBON DIOXIDE 23 mmol/L (22-29); CHLORIDE 103 mmol/L (98-107); CREATININE, SERUM 0.75 mg/dL (0.72-1.25); EST GLOMERULAR FILTRATION RATE > 60 ML/MIN (60-); GLUCOSE 102 mg/dL (74-118); POTASSIUM 3.7 mmol/L (3.5-5.1); SODIUM 132 mmol/L (136-145)
[2019-12-10] MEDS: ENOXAPARIN INJ 80 MG/0.8 ML SYR SC SCH ×3 (08:59→21:11)
[2019-12-10] MEDS: LEVETIRACETAM 500 MG TAB PO SCH ×2 (09:00→17:00)
[2019-12-10] MEDS: LISINOPRIL 10 MG TAB PO SCH (09:00)
[2019-12-10] MEDS: ASPIRIN 325 MG TAB PO SCH (09:00)
[2019-12-10] MEDS: AMIODARONE HCL 200 MG TAB PO SCH (09:00)
--- NOTE | 2019-12-10 10:01 | Progress Note ---
DATE: 12/09/2019 Cardiology progress note. SUBJECTIVE: The patient is without any cardiac complaints. He denies any chest pain or shortness of breath. No palpitation. He does endorse pain in his left knee and also fatigue. OBJECTIVE: VITAL SIGNS: Temperature 97.6, pulse 71, respiratory rate 17, blood pressure 114/63, and oxygen saturation 98% on room air. GENERAL: Alert and oriented x3 resting on the side of the bed. Does not appear to be in any acute distress. NECK: Supple. No JVD noted. LUNGS: Clear to auscultation throughout. No wheezing, no rhonchi or crackles. CARDIOVASCULAR: Regular rate and rhythm. Normal S1, S2. ABDOMEN: Soft and nontender. EXTREMITIES: Left lower extremity with trace edema and swelling around his left knee. CARDIOVASCULAR MEDICATIONS: 1. Lisinopril 10 mg p.o. daily. 2. Aspirin 325 p.o. daily. 3. Metoprolol 25 p.o. q.8 hours. 4. Atorvastatin 10 mg p.o. at bedtime. 5. Lovenox 80 mg subcu q.12 hours. LABORATORY DATA: WBC 7.20, hemoglobin 11.1, hematocrit 32.1, and platelets 176. Sodium 131, potassium 3.9, BUN 16, and creatinine 0.81. TELEMETRY: Normal sinus rhythm. ASSESSMENT: 1. Chest pain. 2. Slurred speech. 3. Hypertension. 4. Hyperlipidemia. 5. Atrial fibrillation status post ablation. 6. Seizure disorder. 7. Hematuria. 8. Leukocytosis which seems to be improving with antibiotics. PLAN: Continue antimicrobial therapy per primary team. No evidence of myocardial infarction was noted on serial cardiac biomarkers. Records from [place] reflect abnormal stress test at the end of last year. Echocardiogram with normal LV function. Mild concentric LVH. Estimated left ventricular ejection fraction of 60% to 65% at this time. No further cardiac workup is indicated. Continue to monitor hematuria. We will continue to follow. Dictated by Omar Lopez MD Omar Lopez MD KSB/MODL /[id number]
--- NOTE | 2019-12-10 11:06 | NUR ---
IMM letter delivered and explained to pt. He verbalized understanding. Signed copy placed in chart. Copy to pt.
--- NOTE | 2019-12-10 11:11 | Diagnostic Imaging Report ---
EXAMINATION: KNEE LEFT THREE VIEWS INDICATION: Knee pain COMPARISON: None FINDINGS: No acute fracture or dislocation. Moderate suprapatellar knee joint effusion. Moderate tricompartmental degenerative changes with joint space narrowing and osteophyte formation. IMPRESSION: No acute osseous injury. Moderate tricompartmental degenerative changes. Moderate joint effusion. Signed by: Ted Winchester MD on 12/10/2019 11:08 AM
--- NOTE | 2019-12-10 13:00 | NUR ---
BED SIDE LEFT KNEE ASPIRATION DONE BY DR GARCIA 20 ML OF BLOOD STAINED FLUID SEND THE LAB FOR TEST
[2019-12-10 14:31] LABS: BODY FLUID APPEARANCE TURBID; BODY FLUID COLOR RED
[2019-12-10 15:05] LABS: RBC,BODY FLUID 5819715 cells/uL; WBC,BODY FLUID 26359 cells/uL
--- NOTE | 2019-12-10 17:00 | NUR ---
STRAINER GIVEN TO STRAIN URINE
--- NOTE | 2019-12-10 17:19 | Progress Note ---
DATE: 12/10/2019 SUBJECTIVE: The patient is alert and responsive. He is in no acute distress. He has had his left knee aspirated. He is tolerating the antibiotics. No pruritus, rash, or diarrhea. OBJECTIVE: VITAL SIGNS: In the past 24 hours, he had temperatures up to 97.7 degrees Fahrenheit. He is hemodynamically stable. HEENT: He has no pallor. There is no icterus. No oropharyngeal lesions. NECK: Supple. CHEST: Symmetric. LUNGS: Clear. HEART: Sounds are regular. There is no new murmur. ABDOMEN: Soft. Bowel sounds are present. EXTREMITIES: There is no acute erythema of the extremities. There is effusion of the left knee with tenderness. LABORATORY DATA: His white count on December 05, 2019, was 9.3; December 08, 2019, was 20.6; December 09, 2019, was 7.2; December 10, 2019, his white count is 7.2, hemoglobin 10.6, and platelet count 179. His serum creatinine is 0.7. Left knee has been aspirated, December report is not available. He had a urine culture from December 07, growing coagulase-negative Staph. IMPRESSION: I suspect contaminated urine culture with coagulase-negative Staph. The patient reports that he has passed a kidney stone. The hematuria has resolved. He has a left knee effusion of unclear etiology. He has had aspiration of the knee. He is on empiric antibiotic treatment for septic arthritis, pending culture results. I suggest continue the antibiotics. Follow up on the cultures. Monitor temperature, CBC, renal function. Continue supportive care. MD JONH Bess/MODL /[id number]
[2019-12-10 17:51] LABS: EOSINOPHILS,BODY FLUID 1 %; LYMPHOCYTES,BODY FLUID 8 %; MONO/MACROPHG,BODY FLUID 7 %; NEUTROPHILS,BODY FLUID 84 %
--- NOTE | 2019-12-10 18:48 | NUR ---
PT RESTING ON BED BED SIDE REPORT GIVEN TO ONCOMING NURSE
--- NOTE | 2019-12-10 19:45 | NUR ---
RECEIVED PT IN BED AOX3 .RESPIRATIONS ARE EVEN AND UNLABORED DENIES PAIN AT THIS TIME LEFT KNEE WITH DRESSING IV RFA 20 G NS RUNNING AT 60CC/HR .FAMILY AT THE BEDSIDE CALL LIGHT WITH INREACH .CONTINUE TO MONITOR
--- NOTE | 2019-12-10 20:55 | Progress Note ---
DATE: 12/10/2019 SUBJECTIVE: No major events overnight. Feels better today. No more chest pain. OBJECTIVE: VITAL SIGNS: Temperature afebrile, pulse 65, respiratory rate 19, blood pressure 130/66, saturating 100% on room air. GENERAL: Well developed, well nourished, no acute distress. CARDIOVASCULAR: Regular rate and rhythm. No murmurs, rubs, or gallops. LUNGS: Clear to auscultation bilaterally. ABDOMEN: Soft, nontender, nondistended. No masses. NEURO AND PSYCH: Alert, oriented to person, place, and time. Normal affect. EXTREMITIES: No edema or ulcers. INPATIENT MEDICATIONS: Reviewed. LABORATORY DATA: Reviewed. TELEMETRY DATA: Reviewed, shows normal sinus rhythm. ASSESSMENT: 1. Chest pain. 2. History of atrial flutter, status post ablation. 3. History of seizures. 4. Hematuria. 5. Leukocytosis. PLAN: Remains in sinus rhythm. Ruled out for acute UT. The patient had atrial flutter ablation done at [facility] and has not been on anticoagulation as an outpatient otherwise. Continue amiodarone and therapeutic Lovenox for now. Recommend starting the patient on Xarelto on discharge and follow up with outpatient qualification engineer. Chest pain has since resolved. No objective evidence of ischemia. Thank you for this consult. We will continue to follow. MD VALENTE Oliva/ROB /[id number]
[2019-12-10] MEDS: ATORVASTATIN 10 MG TAB PO SCH (21:11)
[2019-12-10] MEDS: ACETAMINOPHEN 325 MG TAB PO PRN (23:45)
[2019-12-11] VITALS (9 sets, daily range): BP systolic 129–140; BP diastolic 62–73
[2019-12-11] MEDS: CEFEPIME 2 GM/NS 0.9% 100 ML 100 ML IV SCH ×2 (04:00→16:00)
[2019-12-11] MEDS: VANCOMYCIN HCL 1.25 GM in SODIUM CHLORIDE 0.9% 250ML 250 ML IV SCH ×2 (05:00→17:00)
[2019-12-11] MEDS: METOPROLOL TARTRATE 25 MG TAB PO SCH ×3 (06:00→22:00)
--- NOTE | 2019-12-11 06:18 | NUR ---
IM-progress note O/N see below ROS; no f/c/s/N/V/D/MEDRANO/skin rash/back pain/confusion/focal limb weakness/hallucinations v/s; revd PE tired appearing anicteric ns1s2 mod bs soft nt nd chest wall tender on Right no e/t skin dry n. affect a&ox3; labs/.meds revd A/P: 69yoM Musculoskeletal/Atypical CP HTN Obesity BI 34.7 HLD PAF Knee arthralgia Hyperglycemia Hyponatremia Hematuria DANTE Sepsis- likely POA; due to UTI Cholelithiais PLAN restart home meds; start BB; cont amio; cont AC; Cardio eval; echo; hab1c./lipids GI prop: ppi Hematuria- small; CT abd/pelvis no mass/stone; resolving hematuria; cont AC; DANTE and Sepsis with UTI; check labs; PT consult; Hyponatremic- start fluids; No urinary stone; does have cholellithiasis. 2-3-20 knee effusion- Ortho for drainage; cont abx; Leukocytosis resolved; lab error? check labs today. 2-4 staph epidermidis UTI- contaminant?; XR shows degenerative changes of left knee; arthrocentesis- bloody; WBC 26K; check labs; Darin Dowling MD, PhD.
--- NOTE | 2019-12-11 06:29 | NUR ---
PT RESTED DURING THE NIGHT .DENIES PAIN .CALL LIGHT WITH IN REACH .BED IN THE LOWEST POSITION .CONTINUE TO MONITOR
[2019-12-11 06:52] LABS: ANION GAP 12.7 mmol/L (8-16); BLOOD UREA NITROGEN 12 mg/dL (7-26); BUN/CREATININE RATIO 15 (6-25); CARBON DIOXIDE 21 mmol/L (22-29); CHLORIDE 104 mmol/L (98-107); CREATININE, SERUM 0.82 mg/dL (0.72-1.25); EST GLOMERULAR FILTRATION RATE > 60 ML/MIN (60-); POTASSIUM 3.7 mmol/L (3.5-5.1); SODIUM 134 mmol/L (136-145)
[2019-12-11 06:53] LABS: CALCIUM 9.5 mg/dL (8.4-10.2); GLUCOSE 96 mg/dL (74-118)
--- NOTE | 2019-12-11 07:26 | NUR ---
BEDSIDE REPORT GIVEN TO THE ONCOMING NURSE
[2019-12-11] MEDS: FAMOTIDINE 20 MG TAB PO SCH ×2 (07:30→16:30)
[2019-12-11 08:44] LABS: HEMATOCRIT 33.6 % (38.2-49.6); HEMOGLOBIN 11.2 g/dL (14.0-18.0); LYMPHOCYTES % 25.3 % (18.0-39.1); MEAN CORPUSCULAR HGB CONC 33.3 g/dL (31-35); MONOCYTES % 12.8 % (4.4-11.3); PLATELET COUNT 213 x10e3/uL (140-360); RED CELL DISTRIBUTION WIDTH 13.1 % (11.7-14.4)
[2019-12-11 08:45] LABS: BASOPHILS % 0.5 % (0.0-1.0); EOSINOPHILS # (AUTO) 0.3 (0.0-0.4); EOSINOPHILS % 5.1 % (0.0-6.0); LYMPHOCYTES # (AUTO) 1.6 (1.0-3.2); MONOCYTES # (AUTO) 0.8 (0.2-0.8); NEUTROPHILS # (AUTO) 3.5 (2.1-6.9)
[2019-12-11] MEDS: ENOXAPARIN INJ 80 MG/0.8 ML SYR SC SCH ×2 (09:00→21:00)
[2019-12-11] MEDS: LISINOPRIL 10 MG TAB PO SCH (09:00)
[2019-12-11] MEDS: ASPIRIN 325 MG TAB PO SCH (09:00)
[2019-12-11] MEDS: LEVETIRACETAM 500 MG TAB PO SCH ×2 (09:00→17:00)
[2019-12-11] MEDS: AMIODARONE HCL 200 MG TAB PO SCH (09:00)
[2019-12-11] MEDS: SODIUM CHLORIDE 0.9% 1000ML 1,000 ML IV SCH (10:00)
--- NOTE | 2019-12-11 18:40 | NUR ---
PT RESTING ON BED BED SIDE REPORT GIVEN TO ONCOMING NURSE
--- NOTE | 2019-12-11 19:47 | NUR ---
RECEIVED PT IN BED AOX3 .RESPIRATIONS ARE EVEN AND UNLABORED DENIES PAIN AT THIS TIME IV RFA 20 G NS RUNNING AT 60CC/HR .FAMILY AT THE BEDSIDE CALL LIGHT WITH IN REACH .CONTINUE TO MONITOR
[2019-12-11] MEDS: ATORVASTATIN 10 MG TAB PO SCH (21:11)
--- NOTE | 2019-12-11 22:40 | Progress Note ---
DATE: 12/11/2019 SUBJECTIVE: The patient is alert and responsive. He states the pain in his left knee is subsiding. He is able to flex his knee more. No respiratory gastrointestinal or genitourinary complaints. No adverse medication reaction reported. OBJECTIVE: VITAL SIGNS: In the past 24 hours, he had temperatures up to 98.9 degrees Fahrenheit. GENERAL: He is hemodynamically stable. HEENT: He has no pallor. There is no icterus. No oropharyngeal lesions. NECK: Supple. CHEST: Symmetric. LUNGS: Clear. HEART: Sounds are regular. There is no new murmur. ABDOMEN: Soft, nontender with normal bowel sounds. EXTREMITIES: There appeared to be less effusion in the left knee. There is no obvious erythema. LABORATORY DATA: His white count is 6.2, hemoglobin 11.2, platelet count 213. His serum creatinine is 0.8. Gram stain of aspirate from his left knee showed moderate WBCs and no organisms. Culture shows no growth at 24 hours. Fluid analysis from the left knee showed a red turbid fluid with 26,359 WBCs, 84% of which are neutrophils. There are 5,[phone] red cells. Report on crystals from the fluid not available. No other pathology report is available. IMPRESSION: He has a left knee effusion with concern for septic arthritis. Cultures so far negative. WBC count is in that [place] area where it could be a non-infectious inflammation or could be an infection. I suggest continue current antibiotic coverage for the next 12-24 hours. If the cultures remain negative and the patient is afebrile and stable, discontinue antibiotics and monitor him clinically. Follow up on the fluid crystal report. I have discussed the findings and plans with the patient at the bedside. MD JONH Bess/MODL /[id number]
[2019-12-12] VITALS: BP 115/60
[2019-12-12] MEDS: SODIUM CHLORIDE 0.9% 1000ML 1,000 ML IV SCH (02:40)
[2019-12-12 04:00] VITALS: BP 145/67
[2019-12-12] MEDS: CEFEPIME 2 GM/NS 0.9% 100 ML 100 ML IV SCH (04:00)
[2019-12-12] MEDS: VANCOMYCIN HCL 1.25 GM in SODIUM CHLORIDE 0.9% 250ML 250 ML IV SCH (05:00)
[2019-12-12] MEDS: METOPROLOL TARTRATE 25 MG TAB PO SCH (06:00)
--- NOTE | 2019-12-12 06:11 | NUR ---
PT RESTED DURING THE NIGHT DENIES PAIN .NO ACUTE DISTRESS NOTED .CALL LIGHT WITH IN REACH .CONTINUE TO MONITOR
[2019-12-12 06:52] LABS: BASOPHILS % 0.4 % (0.0-1.0); EOSINOPHILS # (AUTO) 0.5 (0.0-0.4); EOSINOPHILS % 6.4 % (0.0-6.0); HEMATOCRIT 31.3 % (38.2-49.6); HEMOGLOBIN 10.8 g/dL (14.0-18.0); LYMPHOCYTES # (AUTO) 2.1 (1.0-3.2); LYMPHOCYTES % 26.8 % (18.0-39.1); MEAN CORPUSCULAR HEMOGLOBIN 31.5 pg (28-32); MEAN CORPUSCULAR HGB CONC 34.5 g/dL (31-35); MEAN CORPUSCULAR VOLUME 91.3 fL (81-99); MONOCYTES % 13.3 % (4.4-11.3); NEUTROPHILS % 52.8 % (38.7-80.0); PLATELET COUNT 211 x10e3/uL (140-360); RED BLOOD COUNT 3.43 x10e6/uL (4.3-5.7); RED CELL DISTRIBUTION WIDTH 12.7 % (11.7-14.4)
--- NOTE | 2019-12-12 07:15 | NUR ---
BEDSIDE REPORT GIVEN TO THE ONCOMING NURSE
[2019-12-12 08:00] VITALS: BP 126/74
[2019-12-12] MEDS: ASPIRIN 325 MG TAB PO SCH (08:16)
[2019-12-12] MEDS: LISINOPRIL 10 MG TAB PO SCH (08:16)
[2019-12-12] MEDS: LEVETIRACETAM 500 MG TAB PO SCH (08:16)
[2019-12-12] MEDS: AMIODARONE HCL 200 MG TAB PO SCH (08:16)
[2019-12-12] MEDS: FAMOTIDINE 20 MG TAB PO SCH (08:16)
[2019-12-12] MEDS: ENOXAPARIN INJ 80 MG/0.8 ML SYR SC SCH (08:16)
[2019-12-12 08:26] VITALS: BP 126/74
--- NOTE | 2019-12-12 08:32 | NUR ---
Received order for home health/PT. CM to pt's bedside to speak about home health. Pt states he does not know any home health companies. States he will talk to his insurance about it. CM gave him list of in network companies. Pt states he wants to hold off until he talks to his insurance. CM informed him that he can follow up with his PCP to set up home health if he feels like he needs it after discharge. Pt then stated it was ok for CM to send a referral to a company that takes his insurance. States he will be going to his sister's house after discharge, does not know how long he will be there for. Wants HH company to call him and he will give them her address. Choice letter signed for [facility], [facility], and [facility]. Signed choice letter placed in chart. Copy to pt's transition of care folder with each company's contact information. CM reminded pt of medicare rights. IMM letter signed and placed in chart. Copy to pt's transition of care folder. Referral was sent to [facility] at [phone] / P [phone]. Informed them of pending discharge for today. Informed them that pt plans to go to his sister's house and would like to be contacted by them to give address and discuss cost.
--- NOTE | 2019-12-12 10:06 | Progress Note ---
DATE: 12/12/2019 Cardiology Progress Note SUBJECTIVE: The patient feels well this morning. Slept well. Denies any chest pain or shortness of breath or palpitations. OBJECTIVE: VITAL SIGNS: Temperature is 97.0, heart rate is 62, respirations are 22, blood pressure is 145/64, and oxygen saturation is 98% on room air. GENERAL: He is well appearing, in no apparent distress. CARDIOVASCULAR: He has regular rate and rhythm with ectopy. LUNGS: Clear to auscultation. ABDOMEN: Soft, nontender, and nondistended. EXTREMITIES: Trace edema. LABORATORY DATA: Reviewed. Hemoglobin is 10.8. Sodium is 134, creatinine 0.82, and potassium 3.7. TELEMETRY: Monitoring revealed normal sinus rhythm. IMPRESSION: 1. Precordial pain, resolved. 2. History of atrial flutter/fibrillation, status post ablation. 3. History of seizures. 4. Hematuria. 5. Leukocytosis. 6. Knee pain. RECOMMENDATIONS: The patient remains in sinus rhythm on current cardiovascular medications. He ruled out for acute myocardial infarction. He is currently on therapeutic Lovenox. If no further procedures are planned, resume Xarelto. Continue antibiotics per primary team. Maintain on telemetry. We will continue to follow along with you. DO MALATHI Verdugo/MODL /[id number]
--- NOTE | 2019-12-12 10:58 | NUR ---
Received call from Mary Jane at [facility]. States they spoke with pt and he gave them a list of rules to follow if they came out to see them. States they are unable to accommodate pt, so they cannot accept. CM spoke to pt at bedside. Informed him that [facility] unable to accept. CM will send to next choice [facility], if ok with him. He states that it was ok, but if [facility] doesn't accept, then he does not want CM to proceed with HH referral. CM reminded pt that if home health is not set up, but he feels like he needs home health after discharge, he can follow up with his PCP for referral. Referral was faxed to [facility] at [phone] / P [phone]. Informed of pending dc for today and asked them to call pt for his sister's address.
[2019-12-12 12:00] VITALS: BP 117/71
--- NOTE | 2019-12-12 12:44 | NUR ---
CALLED INTO PT ROOM, FAMILY ASKING WHY THERE IS A HOME HEALTH ORDER, STATES GOING TO DAUGHTERS HOME UPON DISCHARGE AND ALERT AND ORIENTED TO BE ABLE TO MAKE SENSE OF HIS MEDICATIONS. THEY WANT TO REFUSE THE HOME HEALTH AND DO NOT THINK IT IS NECESSARY. LET NURSE KNOW TO CANCEL ORDER CALLED [facility] AND LET THEM KNOW TO CANCEL.
[2019-12-12 16:00] VITALS: BP 123/81
--- NOTE | 2019-12-12 17:03 | NUR ---
Dr Albright had rounds stated no growth detected on culture result, No Antibiotic from his point, he explained to patient, Dr Hogue PA cleared him earlier,
--- NOTE | 2019-12-12 17:51 | NUR ---
Patient discharged home, IV canula removed with tip intact, no ss of infiltration, prescription given, tele box returned, family at bed side, transported [facility] to [facility]
--- NOTE | 2019-12-12 19:10 | Progress Note ---
DATE: 12/12/2019 SUBJECTIVE: The patient is fairly stable. He is alert. He is lucid. He has no new complaints. There is less pain in the left knee. OBJECTIVE: VITAL SIGNS: In the past 24 hours, he had temperatures up to 98.2 degrees Fahrenheit. GENERAL: He is hemodynamically stable. HEENT: He has no pallor. No icterus. No oropharyngeal lesions. NECK: Supple. CHEST: Symmetric. The lungs are clear. HEART: Sounds are regular. There is no new murmur. ABDOMEN: Soft and nontender. Bowel sounds are normal. EXTREMITIES: There is no obvious erythema involving the extremities. There appears to be less effusion in the left knee. There is still tenderness, but less than before. LABORATORY DATA: His white count is 7.6, hemoglobin 10.8, and platelet count 211. Serum creatinine is 0.8. Aspirate from his left knee from 12/10/2019 showed no growth. IMPRESSION: He has an inflammatory process involving the left knee. He has had aspiration. Cultures are negative. We have suggested checking fluid for crystals. Report for crystals not available. The patient is afebrile. He has no leukocytosis. I suggest discontinue his antibiotics. The patient can be discharged for outpatient followup. I have advised him to come back to hospital if the swelling in his left knee increased or if there are fevers or other signs of infection. I have discussed the patient with Dr. Dowling. MD JONH Bess/ROB /[id number]
== END 2019-12-12 18:36 | disposition home or self-care (01) | DRG 872 ==
LOC: ER 23:20 → ERHOLD 12-06 01:55 → MED/SURG2 12-06 03:11 → OBSVTOIN 12-08 10:55
PROVIDERS: ADMIT Internal Medicine; ATTEND Internal Medicine
DX: A41.9 Sepsis, unspecified organism (principal); N39.0 Urinary tract infection, site not specified; N17.9 Acute kidney failure, unspecified; E87.1 Hypo-osmolality and hyponatremia; D68.9 Coagulation defect, unspecified; M00.062 Staphylococcal arthritis, left knee; N40.0 Benign prostatic hyperplasia without lower urinary tract symptoms; I48.0 Paroxysmal atrial fibrillation; Z79.01 Long term (current) use of anticoagulants; I10 Essential (primary) hypertension; E78.5 Hyperlipidemia, unspecified; Z86.73 Personal history of transient ischemic attack (TIA), and cerebral infarction without residual deficits; Z87.891 Personal history of nicotine dependence; E66.9 Obesity, unspecified; Z68.34 Body mass index [BMI] 34.0-34.9, adult; M25.569 Pain in unspecified knee; R73.9 Hyperglycemia, unspecified; N21.0 Calculus in bladder; R31.29 Other microscopic hematuria; D64.9 Anemia, unspecified; G40.909 Epilepsy, unspecified, not intractable, without status epilepticus; R07.89 Other chest pain; K80.20 Calculus of gallbladder without cholecystitis without obstruction
CPT/HCPCS: 36415; 71045; 74177; 80048; 80053; 80061; 80202; 81001; 82150; 82550; 82553; 83036; 83690; 83735; 84100; 84484; 85025; 87070; 87071; 87075; 87086; 87116; 87186; 87205; 87206; 89051; 89060; 93005; 93306; 96374; 96375; 97139; 99284; G0378; J0696; J1650; J2270; J2405; J2543; J3370; J7030; J7050; Q0162; Q9967